=== PATIENT | female | born 1950 | race Caucasian/White ===

== ENCOUNTER 2017-07-30 06:11 | Day surgery (SDC) | payer OTHER, MEDICARE ==
[2017-07-26 13:30] LABS: HEMATOCRIT 39.3 % (36.0-47.0); HEMOGLOBIN 13.2 g/dL (12.0-15.5); HGB HCT DIFFERENCE 0.3; MEAN CORPUSCULAR HEMOGLOBIN 28.9 pg (27.0-33.4); MEAN CORPUSCULAR HGB CONC 33.5 g/dL (32.0-36.0); MEAN CORPUSCULAR VOLUME 86 fl (80-97); RED BLOOD COUNT 4.56 10^6/uL (3.72-5.28); RED CELL DISTRIBUTION WIDTH 15.3 % (11.5-14.0); WHITE BLOOD COUNT 9.9 10^3/uL (4.0-10.5)
[2017-07-26 13:34] LABS: PARTIAL THROMBOPLASTIN TIME 30.8 SEC (23.5-35.8); PROTHROMBIN TIME 12.9 SEC (11.4-15.4)
--- NOTE | 2017-07-26 13:37 | RADIOLOGY REPORT (SQ) ---
EXAM DESCRIPTION: CHEST PA/LATERAL COMPLETED DATE/TIME: 07/26/2017 1:11 pm REASON FOR STUDY: PRE-OP COMPARISON: None. EXAM PARAMETERS: NUMBER OF VIEWS: two views TECHNIQUE: Digital Frontal and Lateral radiographic views of the chest acquired. RADIATION DOSE: NA LIMITATIONS: none FINDINGS: LUNGS AND PLEURA: No opacities, masses or pneumothorax. No pleural effusion. MEDIASTINUM AND HILAR STRUCTURES: No masses or contour abnormalities. HEART AND VASCULAR STRUCTURES: Heart normal size. No evidence for failure. BONES: No acute findings. HARDWARE: Electronic device is present on the back. OTHER: No other significant finding. IMPRESSION: NO SIGNIFICANT RADIOGRAPHIC FINDING IN THE CHEST. TECHNICAL DOCUMENTATION: JOB ID: [id number] [employer]- All Rights Reserved
[2017-07-26 13:48] LABS: APPEARANCE,URINE CLEAR; BILIRUBIN,URINE NEGATIVE (NEGATIVE); GLUCOSE, URINE NEGATIVE (NEGATIVE); KETONES,URINE NEGATIVE (NEGATIVE); LEUKOCYTE ESTERASE,URINE NEGATIVE (NEGATIVE); NITRITE,URINE NEGATIVE (NEGATIVE); PROTEIN,URINE NEGATIVE (NEGATIVE); UROBILINOGEN,URINE NEGATIVE mg/dL (<2.0)
[2017-07-26 13:53] LABS: RBC,URINE RARE /HPF
--- NOTE | 2017-07-27 02:47 | EKG REPORT ---
SEVERITY:- OTHERWISE NORMAL ECG - SINUS RHYTHM WITH PACS. LEFT AXIS DEVIATION : Confirmed by: Oscar Green MD 26-Jul-2017 19:55:10
[~2017-07-30 06:11] MED LIST: CEFAZOLIN 1 GM/D5W RTU 1 GM/50 ML RTUPB IV PRN; LACTATED RINGERS 1000 ML IV PRN; LIDOCAINE 0.5% INJ-PF (5 MG/ML) 50 ML SDV SUBCUT PRN
[2017-07-30] MEDS ORDERED: LIDOCAINE 1% INJ-PF (10 MG/ML) 30 ML SDV ONE (06:45)
[2017-07-30] MEDS ORDERED: BUPIVACAINE HCL 0.25% /EPINEPHRINE INJ/PF 30 ML SDV ONE (06:45)
[2017-07-30] MEDS ORDERED: KETAMINE HCL INJ 500 MG/10 ML VIAL ONE (07:37)
[2017-07-30] MEDS ORDERED: FENTANYL CITRATE INJ/PF 100 MCG/2 ML AMPUL ONE ×2 (07:37→09:33)
[2017-07-30] MEDS ORDERED: MIDAZOLAM 2 MG/2 ML INJ ONE (07:37)
[2017-07-30] MEDS ORDERED: EPHEDRINE SULFATE INJ 50 MG/1 ML AMPULE ONE (07:38)
[2017-07-30] MEDS ORDERED: PROPOFOL INJ 200 MG/20 ML VIAL IV ONE (07:38)
[2017-07-30] MEDS ORDERED: ACETAMINOPHEN 100 ML IV ONE (07:38)
[2017-07-30] MEDS ORDERED: LIDOCAINE 2% INJ-PF (100 MG/5 ML) SYRINGE ONE (07:38)
[2017-07-30] MEDS ORDERED: SODIUM BICARBONATE 8.4% INJ 50 MEQ/50 ML DISP.SYRIN ONE (07:55)
[2017-07-30] MEDS ORDERED: FENTANYL CITRATE INJ/PF 100 MCG/2 ML AMPUL IV PRN ×3 (08:30)
[2017-07-30] MEDS ORDERED: MORPHINE SULFATE 10 MG/ML INJ IV PRN (08:30)
[2017-07-30] MEDS ORDERED: MEPERIDINE HCL/PF INJ 25 MG/1 ML DISP.SYRIN IV PRN (08:30)
[2017-07-30] MEDS ORDERED: ONDANSETRON HCL INJ/PF 4 MG/2 ML SDV IV PRN (08:30)
[2017-07-30] MEDS ORDERED: OXYCODONE-ACETAMINOPHEN 5-325 MG TABLET PO PRN ×2 (08:30)
[2017-07-30] MEDS ORDERED: DIPHENHYDRAMINE HCL 50 MG/ML VIAL IV PRN (08:30)
[2017-07-30] MEDS ORDERED: PROMETHAZINE HCL INJ 25 MG/1 ML VIAL IV PRN ×2 (08:30)
[2017-07-30] MEDS ORDERED: CEFAZOLIN INJ 1 GM VIAL ONE (09:27)
--- NOTE | 2017-07-30 09:38 | OPERATIVE REPORT E ---
Operative Report NAME: JOAQUIN MELISSA : 1950 AGE: 67Y DATE OF SURGERY: 07/30/2017 ROOM: PREOPERATIVE DIAGNOSIS: Post-laminectomy syndrome with intractable back and lower extremity pain. POSTOPERATIVE DIAGNOSIS: Post-laminectomy syndrome with intractable back and lower extremity pain. OPERATIVE PROCEDURE: 1. Surgical implantation of right and left spinal cord stimulator leads using dual octrodes with a total of 16 electrode contact points. 2. Implantation and programming of rechargeable spinal cord stimulator generator and fluoroscopy for guidance of needle placement and electrode placement with complex programming. SURGEON: OSMAN CHAWLA M.D. RESTAURANT EXPEDITOR: Dr. Jose Luis Appiah ANESTHESIA: MAC. BLOOD LOSS: Minimal. SPECIMENS REMOVED: None. INDICATIONS: Successful outpatient trial to spinal cord stimulation. PROCEDURE NOTE: After obtaining informed consent advising the patient of the risks and benefits, including serious neurological injury, bleeding, and infection, the patient was taken to the operating room suite and placed comfortably in the prone position. Comfort was assessed visually and verbally. The patient was prepped twice with chlorhexidine with appropriate drying time prior to draping. Using fluoroscopy the spine was evaluated. A suitable entrance site at the T11-T12 interspace was identified. The midline incision site was identified as well. The skin was anesthetized with 1% lidocaine with bicarb followed by 0.25% bupivacaine with epinephrine. It should also be noted that simultaneously over the right gluteal region Dr. Appiah was initiating the surgical implantation procedure for placement of the pulse generator with initiation of local anesthetic with lidocaine and bupivacaine as described previously. Once suitable anesthesia was obtained with local anesthetic, sharp and blunt dissection was performed down to the lumbar fascia. The region was easily identified. Some undermining of the tissue was performed to create a suitable working area. Beginning on the left side, using a spinal needle, the tract of the Tuohy needle was anesthetized with 1% lidocaine down to the T12-T11 interspace. This was repeated on the right side. Then, using a 14-gauge Tuohy needle, this was advanced into the epidural space without difficulty using loss of resistance to saline technique. The octrode was then placed on the left. This procedure then proceeded on the right. Lateral view was then taken to assure posterior placement of the electrodes. The electrodes were than advanced up to the mid portion of T7 with multiple radiological views to ascertain safety and satisfactory location, and the leads remained posterior at all times. The decision was made to implant after successful trial effecting spinal cord stimulation at all of the desired locations. The 0-Mersilene ties were placed in a pursestring fashion around each needle followed by a distal anchor stay stitch. Beginning on the left the Tuohy needle was removed with care being made not to dislodge the electrode. The pursestring was secured after placing the tubular anchor. This was then tied to the tubular anchor. The distal pursestring was also tied to the anchor and the hex nut was secured. This was then repeated on the right side, removing the Tuohy needle followed by securing the stay sutures and the anchor with tightening of the hex nut. Copious irrigation was then utilized. The wound was evaluated for hemostasis and this was satisfactory. The leads were then tunneled to the pocket by Dr. Appiah. It should be noted that local anesthetic was used for tunneling as well. The leads were then coiled in the back as well as coiled in the pulse generator site, connected to the generator with successful connectivity and appropriate impedances. All wounds were further irrigated and closure was performed with 3-0 Polysorb using vertical inverted mattress sutures. The skin was then sealed with the Dermabond tape followed by cement, Telfa dressings and Tegaderm. The patient was then taken to the PACU for further postoperative care and monitoring. DICTATING PHYSICIAN: OSMAN CHWALA M.D. [id number] PHY#: [id number] ID: [id number] JOB#: [id number] ACCT: [id number] cc:OSMAN CHAWLA M.D. >
[2017-07-30] MEDS ORDERED: HYDROCODONE/ACETAMINOPHEN 10-325 MG TABLET PO PRN (09:59)
[2017-07-30 12:16] VITALS: BP 114/76
--- NOTE | 2017-07-30 12:59 | RADIOLOGY REPORT (SQ) ---
EXAM DESCRIPTION: NO CHG FLUORO; T SPINE AP/LAT COMPLETED DATE/TIME: 07/30/2017 12:30 pm REASON FOR STUDY: SPINAL STIMULATOR PLCMT ASSISTED WITH FLUORO IN OR G89.4 CHRONIC PAIN SYNDROME COMPARISON: None. FLUOROSCOPY TIME: 4.5 minutes 10 images saved to PACS. TECHNIQUE: Intra-operative images acquired during surgical procedure to evaluate progress. NUMBER OF IMAGES: 10 LIMITATIONS: None. FINDINGS: Placement of neurostimulator. Leads present mid thoracic. IMPRESSION: IMAGE(S) OBTAINED DURING PROCEDURE. COMMENT: Quality ID [id number]: Final reports for procedures using fluoroscopy that document radiation exp osure indices, or exposure time and number of fluorographic images (if radiation exposure indices are not available) Please consult full operative report of the attending physician for description of the procedure. TECHNICAL DOCUMENTATION: JOB ID: [id number] [employer]- All Rights Reserved
--- NOTE | 2017-07-30 12:59 | RADIOLOGY REPORT (SQ) ---
EXAM DESCRIPTION: NO CHG FLUORO; T SPINE AP/LAT COMPLETED DATE/TIME: 07/30/2017 12:30 pm REASON FOR STUDY: SPINAL STIMULATOR PLCMT ASSISTED WITH FLUORO IN OR G89.4 CHRONIC PAIN SYNDROME COMPARISON: None. FLUOROSCOPY TIME: 4.5 minutes 10 images saved to PACS. TECHNIQUE: Intra-operative images acquired during surgical procedure to evaluate progress. NUMBER OF IMAGES: 10 LIMITATIONS: None. FINDINGS: Placement of neurostimulator. Leads present mid thoracic. IMPRESSION: IMAGE(S) OBTAINED DURING PROCEDURE. COMMENT: Quality ID [id number]: Final reports for procedures using fluoroscopy that document radiation exp osure indices, or exposure time and number of fluorographic images (if radiation exposure indices are not available) Please consult full operative report of the attending physician for description of the procedure. TECHNICAL DOCUMENTATION: JOB ID: [id number] [employer]- All Rights Reserved
== END 2017-07-30 11:25 | disposition home or self-care (01) ==
LOC: OROUT 06:11
PROVIDERS: ATTEND Pain Medicine Interventional Pain Medicine
PROC: 00HU3MZ Insertion of Neurostimulator Lead into Spinal Canal, Percutaneous Approach (ICD-10-PCS; 2017-07-30)
PROC: 0JH70MZ Insertion of Stimulator Generator into Back Subcutaneous Tissue and Fascia, Open Approach (ICD-10-PCS; principal; 2017-07-30 08:00)
DX: G89.4 Chronic pain syndrome (principal); M54.16 Radiculopathy, lumbar region; M96.1 Postlaminectomy syndrome, not elsewhere classified; M54.5 Low back pain; E78.5 Hyperlipidemia, unspecified; I10 Essential (primary) hypertension; M19.90 Unspecified osteoarthritis, unspecified site; F32.9 Major depressive disorder, single episode, unspecified; Z79.899 Other long term (current) drug therapy; Z79.891 Long term (current) use of opiate analgesic
CPT/HCPCS: 63685; 63650; 93005; 36415; 82962; 85027; 85610; 85730; 81001; 71020; 72070; 93010; C1820; J2250; J3490 ×4; J0690 ×2; J3010; J2001; J2704; J0131; 1936

== ENCOUNTER 2017-09-02 11:15 | Inpatient (IN) | payer MEDICARE, OTHER ==
[2017-09-30] MEDS ORDERED: LANSOPRAZOLE 15 MG TAB.RAP.DR PO PRN (05:00)
[2017-09-30] MEDS ORDERED: LIDOCAINE 0.5% INJ-PF (5 MG/ML) 50 ML SDV SUBCUT PRN (05:00)
[2017-09-30] MEDS ORDERED: LACTATED RINGERS 1000 ML IV PRN (05:00)
[2017-09-30] MEDS ORDERED: VANCOMYCIN HCL 1,000 MG in DEXTROSE 5%-WATER 250 ML IV PRN (05:00)
[2017-09-30] MEDS ORDERED: OXYCODONE HCL SR 10 MG TABLET PO PRN (05:00)
[2017-09-30] MEDS ORDERED: CEFAZOLIN INJ 1 GM VIAL IV PRN (05:00)
[2017-09-30] MEDS ORDERED: IBUPROFEN 800 MG in NORMAL SALINE 250 ML IV PRN (05:00)
[2017-09-30] MEDS ORDERED: BUPIVACAINE INJ/PF LIPOSOME/PF 266 MG/20 ML SDV INJ PRN (05:00)
[2017-09-30] MEDS ORDERED: BUPIVACAINE INJ/PF LIPOSOME/PF 266 MG/20 ML SDV ONE (05:16)
[2017-09-30] MEDS ORDERED: THROMBIN (BOVINE) 5000 UNIT EPITAXIS KIT ONE (05:16)
[2017-09-30] MEDS ORDERED: THROMBIN (BOVINE) TOPICAL 20000 UNIT VIAL ONE (05:16)
[2017-09-30] MEDS ORDERED: EPHEDRINE SULFATE INJ 50 MG/1 ML AMPULE ONE (06:41)
[2017-09-30] MEDS ORDERED: LIDOCAINE 2% INJ-PF (20 MG/ML) 10 ML AMPUL ONE (06:41)
[2017-09-30] MEDS ORDERED: MIDAZOLAM 2 MG/2 ML INJ ONE (06:41)
[2017-09-30] MEDS ORDERED: PROPOFOL INJ 200 MG/20 ML VIAL IV ONE (06:41)
[2017-09-30] MEDS ORDERED: FENTANYL CITRATE INJ/PF 100 MCG/2 ML AMPUL ONE ×2 (06:41→09:00)
[2017-09-30] MEDS ORDERED: ONDANSETRON HCL INJ/PF 4 MG/2 ML SDV ONE (06:41)
[2017-09-30] MEDS ORDERED: TRANEXAMIC ACID INJ/PF 1,000 MG/10 ML SDV IV ONE ×2 (06:42→10:30)
[2017-09-30] MEDS ORDERED: HYDROMORPHONE HCL INJ/PF 2 MG/ML AMPULE ONE (06:42)
[2017-09-30] MEDS ORDERED: MEPERIDINE HCL/PF INJ 25 MG/1 ML DISP.SYRIN IV PRN (07:46)
[2017-09-30] MEDS ORDERED: MORPHINE SULFATE 10 MG/ML INJ IV PRN ×4 (07:46→08:32)
[2017-09-30] MEDS ORDERED: ONDANSETRON HCL INJ/PF 4 MG/2 ML SDV IV PRN ×2 (07:46→08:32)
[2017-09-30] MEDS ORDERED: DIPHENHYDRAMINE HCL 50 MG/ML VIAL IV PRN ×2 (07:46→08:32)
[2017-09-30] MEDS ORDERED: OXYCODONE-ACETAMINOPHEN 5-325 MG TABLET PO PRN ×2 (07:46)
[2017-09-30] MEDS ORDERED: FENTANYL CITRATE INJ/PF 100 MCG/2 ML AMPUL IV PRN ×3 (07:46)
[2017-09-30] MEDS ORDERED: PROMETHAZINE HCL INJ 25 MG/1 ML VIAL IV PRN ×2 (07:46)
--- NOTE | 2017-09-30 08:19 | Operative Report ---
Operative Report DATE OF SURGERY: 09/30/17 PREOPERATIVE DIAGNOSIS: Right hip arthritis OPERATION: Right hip arthroplasty SURGEON: ERIKA WOODS 1ST OFFICE ELECTRICIAN: MARIE VEGA ANESTHESIA: GA TISSUE REMOVED OR ALTERED: Femoral head to pathology PROCEDURE: Implants used: Femur: [place] Accolade 2 stem size 4 Acetabular shell: 50 mm PSL shell Liner: 36 mm flat cross-link polyethylene liner Head: 36 mm chrome cobalt head -5 neck The patient is placed in a left lateral decubitus position on the operating table. The right lower extremity and hindquarter is prepped and draped in a sterile fashion. A curvilinear incision was made over the greater trochanter a posterior approach the hip was taken. Because of the presence of a spinal stimulator all hemostasis was obtained with bipolar cautery. The femoral head is dislocated and the femoral neck transected using an oscillating saw. Attention was next turned to the acetabulum. Soft tissues cleared off the acetabulum using electrocautery. The acetabulum was then prepared using a series of hemispherical reamers until a 50 millimeters reamer is seated. Subsequently a 50 millimeters [place] PSL shell is impacted into position and secured with one screw. A standard flat 36 millimeters cross-link liner is impacted into the shell. Attention was next turned to the femur. Access is gained to the femoral canal using a box osteotome to the piriformis fossa. The femur is then prepared using a series of broaches until a number 4 broach is seated. A trial reduction was now performed using a 36 millimeters head with -5 neck. Preoperative leg length was recreated and is excellent anterior posterior stability. A decision was made to proceed with the above construct. All trial implants were removed. The wound is irrigated with pulsed lavage. A number 4 stem is impacted into the femoral canal. A trial reduction was again performed with a 36 mm head and a -5 neck. Findings as previously. The hip was dislocated one last time and the final chrome-cobalt head is impacted onto the trunnion. The hip was reduced. Wound is copiously irrigated with pulsed lavage. Sent closed in layers using interrupted Vicryl followed by gene. A sterile dressing is applied and the patient's returned to recovery room in satisfactory patient.
[2017-09-30] MEDS ORDERED: METHOCARBAMOL 500 MG TABLET PO PRN (08:31)
[2017-09-30] MEDS ORDERED: RINGERS SOLUTION,LACTATED 1,000 ML IV PRN (08:32)
[2017-09-30] MEDS ORDERED: MAG HYDROX/AL HYDROX/SIMETH SUSP 30 ML UDCUP PO PRN (08:32)
[2017-09-30] MEDS ORDERED: ONDANSETRON 4 MG TAB.RAPDIS PO PRN (08:32)
[2017-09-30] MEDS ORDERED: ZOLPIDEM TARTRATE 5 MG TABLET PO PRN (08:32)
[2017-09-30] MEDS ORDERED: MORPHINE SULFATE 10 MG/ML INJ IM PRN (08:32)
[2017-09-30] MEDS ORDERED: NALOXONE HCL INJ/PF 0.4 MG/1 ML SDV ONE (08:59)
[2017-09-30] MEDS ORDERED: FLUMAZENIL INJ 0.5 MG/5 ML VIAL ONE (08:59)
--- NOTE | 2017-09-30 09:54 | RADIOLOGY REPORT (SQ) ---
EXAM DESCRIPTION: PELVIS AP COMPLETED DATE/TIME: 09/30/2017 9:33 am REASON FOR STUDY: Post Op Long Cassette in PACU M16.11 UNILATERAL PRIMARY OSTEOARTHRITIS, RIGHT HI P COMPARISON: None. NUMBER OF VIEWS: One view TECHNIQUE: AP Pelvis LIMITATIONS: None. FINDINGS: MINERALIZATION: Normal. HIPS: Total right hip prostheses. No radiographic evidence of loosening or infection. Post surgica l changes with multiple surgical metallic gene in the lateral soft tissues of the right hip. No acute fracture or dislocation involving the left hip. Slight degenerative changes. PELVIS AND SACRUM: Surgical metallic clips in the right hemipelvis and midline pelvis. PUBIS AND ISCHIUM: No acute fracture. LOWER LUMBAR SPINE: No significant findings as visualized. SOFT TISSUES: No findings. OTHER: Partially visualized neural stimulator device. Post surgical changes involving the visualize d mid lower lumbar spine. IMPRESSION: 1 Post surgical changes right hip. Total right hip prostheses. 2. No acute fracture or dislocation. 3 Slight degenerative changes at the left hip. TECHNICAL DOCUMENTATION: JOB ID: [id number] [employer]- All Rights Reserved
[2017-09-30] MEDS: ASPIRIN 81 MG TABLET, CHEWABLE PO SCH (10:47)
[2017-09-30] MEDS: GABAPENTIN 300 MG CAPSULE PO SCH ×2 (11:07→18:35)
[2017-09-30] MEDS ORDERED: SUCCINYLCHOLINE CHLORIDE INJ 200 MG/10 ML VIAL ONE ×2 (12:03→12:04)
[2017-09-30] MEDS ORDERED: HYDROMORPHONE HCL INJ/PF 2 MG/ML AMPULE IV PRN (12:14)
[2017-09-30] MEDS ORDERED: INSULIN LISPRO 100 UNIT/ML 3 ML VIAL SUBCUT PRN (12:38)
[2017-09-30] MEDS ORDERED: GLUCAGON,HUMAN RECOMB 1 MG INJ IM PRN (12:38)
[2017-09-30] MEDS ORDERED: DEXTROSE 50%-WATER SYRINGE 12.5 GM/25 ML DOSE IV PRN (12:38)
[2017-09-30] MEDS ORDERED: DEXTROSE 50%-WATER SYRINGE 25 GM/50 ML DOSE IV PRN (12:38)
[2017-09-30] MEDS ORDERED: DEXTROSE 40% GEL 15 GM TUBE X 2 PO PRN (12:38)
[2017-09-30] MEDS ORDERED: DEXTROSE 40% GEL 15 GM TUBE PO PRN (12:38)
[2017-09-30] MEDS: HYDROMORPHONE HCL INJ/PF 2 MG/ML AMPULE IV PRN (13:52)
[2017-09-30] MEDS ORDERED: ACETAMINOPHEN 100 ML IV ONE (14:32)
[2017-09-30] MEDS: IBUPROFEN 800 MG in NORMAL SALINE 250 ML IV SCH (15:15)
[2017-09-30] MEDS: OXYCODONE HCL IR 5 MG TABLET PO PRN (18:35)
[2017-09-30] MEDS: SIMVASTATIN 40 MG TABLET PO SCH (18:35)
[2017-09-30] MEDS ORDERED: VANCOMYCIN HCL 1,000 MG in DEXTROSE 5%-WATER 250 ML IV ONE (20:32)
[2017-09-30] MEDS: OXYCODONE HCL SR 10 MG TABLET PO SCH (21:44)
[2017-09-30] MEDS: OXYBUTYNIN CHLORIDE 5 MG TABLET PO SCH (21:44)
[2017-09-30] MEDS: TRAZODONE HCL 50 MG TABLET PO SCH (21:44)
[2017-09-30] MEDS ORDERED: (PENDING PHARMACY ID) (Trazodone Hcl [Desyrel] 150 MG) PO SCH (22:00)
[2017-10-01] MEDS: GABAPENTIN 300 MG CAPSULE PO SCH ×5 (00:42→23:52)
[2017-10-01] MEDS: IBUPROFEN 800 MG in NORMAL SALINE 250 ML IV SCH ×4 (00:42→22:25)
[2017-10-01 05:39] LABS: HEMATOCRIT 27.4 % (36.0-47.0); HEMOGLOBIN 9.2 g/dL (12.0-15.5); MEAN CORPUSCULAR HEMOGLOBIN 29.7 pg (27.0-33.4); MEAN CORPUSCULAR HGB CONC 33.6 g/dL (32.0-36.0); MEAN CORPUSCULAR VOLUME 88 fl (80-97); PLATELET COUNT 221 10^3/uL (150-450); RED BLOOD COUNT 3.11 10^6/uL (3.72-5.28); RED CELL DISTRIBUTION WIDTH 14.3 % (11.5-14.0); WHITE BLOOD COUNT 10.1 10^3/uL (4.0-10.5)
[2017-10-01 06:14] LABS: ANION GAP 7 (5-19); BLOOD UREA NITROGEN 17 mg/dL (7-20); CALCIUM 8.9 mg/dL (8.4-10.2); CARBON DIOXIDE 24 mmol/L (22-30); CHLORIDE 103 mmol/L (98-107); GLUCOSE 109 mg/dL (75-110); POTASSIUM 4.8 mmol/L (3.6-5.0); SODIUM 133.9 mmol/L (137-145)
[2017-10-01] MEDS: LANSOPRAZOLE 30 MG TAB.RAP.DR PO SCH (06:44)
--- NOTE | 2017-10-01 07:05 | PDOC PROGRESS REPORT ---
Subjective Progress Note for:: 10/01/17 Reason For Visit: RIGHT HIP ARTHRITIS 67-year-old white female postop day 1 right hip arthroplasty. Patient complains of discomfort. Physical Exam Vital Signs: Temp Pulse Resp BP Pulse Ox 36.7 C 67 16 94/44 L 98 10/01/17 03:31 10/01/17 03:31 10/01/17 03:31 10/01/17 03:31 10/01/17 03:31 Intake & Output 09/30/17 10/01/17 10/02/17 06:59 06:59 06:59 Intake Total 0 4150 Output Total 2050 Balance 0 2100 General appearance: PRESENT: mild distress Head exam: PRESENT: normocephalic Respiratory exam: PRESENT: unlabored Cardiovascular exam: PRESENT: RRR Pulses: PRESENT: +1 pedal pulses bilateral Vascular exam: PRESENT: normal capillary refill GI/Abdominal exam: PRESENT: soft Rectal exam: PRESENT: deferred Extremities exam: PRESENT: other - Right hip dressing clean dry and intact. Leg lengths are equal. Distal neurovascular examination is intact. Neurological exam: PRESENT: alert, awake, oriented to person, oriented to place , oriented to time, oriented to situation. ABSENT: motor sensory deficit Psychiatric exam: PRESENT: appropriate affect, normal mood. ABSENT: homicidal ideation, suicidal ideation Skin exam: PRESENT: dry, intact, warm. ABSENT: cyanosis, rash Results Laboratory Results: 10/01/17 05:12 10/01/17 05:12 10/01/17 10/01/17 05:12 05:12 WBC 10.1 RBC 3.11 L Hgb 9.2 L Hct 27.4 L MCV 88 MCH 29.7 MCHC 33.6 RDW 14.3 H Plt Count 221 Sodium 133.9 L Potassium 4.8 Chloride 103 Carbon Dioxide 24 Anion Gap 7 BUN 17 Creatinine 1.24 Est GFR ( Amer) 52 L Est GFR (Non-Af Amer) 43 L Glucose 109 Calcium 8.9 Impressions: Pelvis X-Ray 09/30/17 08:33 IMPRESSION: 1 Post surgical changes right hip. Total right hip prostheses. 2. No acute fracture or dislocation. 3 Slight degenerative changes at the left hip. Status: Imported from PACS Assessment & Plan - Diagnosis (1) Arthritis of right hip Is this a current diagnosis for this admission?: Yes Plan: 67-year-old white female status post right hip arthroplasty yesterday. Patient made limited if any progress with physical therapy yesterday. Hematocrit is dropped to 27.4%. Plan for ongoing physical therapy today. Will observe the hematocrit tomorrow morning. Anticipate discharge home tomorrow with home health assisted health physical therapy. - Time Time Spent with patient: 15-24 minutes Anticipated discharge: Home with Homehealth Within: within 24 hours
[2017-10-01] MEDS: OXYCODONE HCL SR 10 MG TABLET PO SCH ×2 (09:45→22:24)
[2017-10-01] MEDS: LOSARTAN POTASSIUM 50 MG TABLET PO SCH (09:46)
[2017-10-01] MEDS: DULOXETINE HCL 30 MG CAPSULE.DR PO SCH (09:46)
[2017-10-01] MEDS: ASPIRIN 81 MG TABLET, CHEWABLE PO SCH (09:46)
[2017-10-01] MEDS: OXYBUTYNIN CHLORIDE 5 MG TABLET PO SCH ×2 (09:47→22:26)
[2017-10-01] MEDS: HYDROMORPHONE HCL INJ/PF 2 MG/ML AMPULE IV PRN (15:11)
[2017-10-01] MEDS: SIMVASTATIN 40 MG TABLET PO SCH (17:19)
[2017-10-01] MEDS: TRAZODONE HCL 50 MG TABLET PO SCH (22:25)
[2017-10-02 04:58] LABS: HEMATOCRIT 24.5 % (36.0-47.0); HEMOGLOBIN 8.2 g/dL (12.0-15.5); MEAN CORPUSCULAR HEMOGLOBIN 29.6 pg (27.0-33.4); MEAN CORPUSCULAR HGB CONC 33.3 g/dL (32.0-36.0); MEAN CORPUSCULAR VOLUME 89 fl (80-97); PLATELET COUNT 191 10^3/uL (150-450); RED BLOOD COUNT 2.76 10^6/uL (3.72-5.28); RED CELL DISTRIBUTION WIDTH 14.3 % (11.5-14.0); WHITE BLOOD COUNT 10.7 10^3/uL (4.0-10.5)
[2017-10-02] MEDS: IBUPROFEN 800 MG in NORMAL SALINE 250 ML IV SCH (05:16)
[2017-10-02] MEDS ORDERED: NORMAL SALINE 250 ML IV PRN (05:50)
[2017-10-02] MEDS: GABAPENTIN 300 MG CAPSULE PO SCH ×4 (06:28→23:09)
[2017-10-02] MEDS: LANSOPRAZOLE 30 MG TAB.RAP.DR PO SCH (06:28)
--- NOTE | 2017-10-02 06:43 | PDOC PROGRESS REPORT ---
Subjective Progress Note for:: 10/02/17 Reason For Visit: RIGHT HIP ARTHRITIS 67-year-old white female postop day 2 right hip arthroplasty. Patient complaining of discomfort. Patient making limited progress with physical therapy. Patient exhibiting some upper airway congestion. Physical Exam Vital Signs: Temp Pulse Resp BP Pulse Ox 36.9 C 65 16 100/54 L 98 10/02/17 00:00 10/02/17 00:00 10/02/17 00:00 10/02/17 00:00 10/02/17 00:00 Intake & Output 09/30/17 10/01/17 10/02/17 06:59 06:59 06:59 Intake Total 0 4666 594 Output Total 2850 550 Balance 0 1816 44 General appearance: PRESENT: mild distress Head exam: PRESENT: normocephalic Respiratory exam: PRESENT: unlabored Cardiovascular exam: PRESENT: RRR Extremities exam: PRESENT: other - Right hip dressing clean dry and intact. Leg lengths are equal. Distal neurovascular examination is intact. Neurological exam: PRESENT: alert, awake, oriented to person, oriented to place , oriented to time, oriented to situation. ABSENT: motor sensory deficit Psychiatric exam: PRESENT: appropriate affect, normal mood. ABSENT: homicidal ideation, suicidal ideation Skin exam: PRESENT: dry, intact, warm. ABSENT: cyanosis, rash Results Laboratory Results: 10/02/17 04:30 10/01/17 05:12 09/30/17 10/02/17 05:59 04:30 WBC 10.7 H RBC 2.76 L Hgb 8.2 L Hct 24.5 L MCV 89 MCH 29.6 MCHC 33.3 RDW 14.3 H Plt Count 191 Blood Type A POSITIVE Antibody Screen NEGATIVE Impressions: Pelvis X-Ray 09/30/17 08:33 IMPRESSION: 1 Post surgical changes right hip. Total right hip prostheses. 2. No acute fracture or dislocation. 3 Slight degenerative changes at the left hip. Status: Imported from PACS Assessment & Plan - Diagnosis (1) Arthritis of right hip Is this a current diagnosis for this admission?: Yes Plan: Patient making limited progress with physical therapy currently. Have changed her discharge goals now to a care home facility. (2) Acute blood loss as cause of postoperative anemia Is this a current diagnosis for this admission?: Yes Plan: Patient's postoperative hematocrit is dropped to 24.5%. 2 units of packed red blood cells have been ordered. - Time Time Spent with patient: 15-24 minutes Anticipated discharge: SNF Within: within 24 hours
[2017-10-02] MEDS: LOSARTAN POTASSIUM 50 MG TABLET PO SCH (10:15)
[2017-10-02] MEDS: OXYCODONE HCL SR 10 MG TABLET PO SCH (10:18)
[2017-10-02] MEDS: DULOXETINE HCL 30 MG CAPSULE.DR PO SCH (10:18)
[2017-10-02] MEDS: ASPIRIN 81 MG TABLET, CHEWABLE PO SCH (10:18)
[2017-10-02] MEDS: OXYBUTYNIN CHLORIDE 5 MG TABLET PO SCH ×2 (10:18→23:10)
[2017-10-02] MEDS: SIMVASTATIN 40 MG TABLET PO SCH (17:23)
[2017-10-02] MEDS: TRAZODONE HCL 50 MG TABLET PO SCH (23:10)
[2017-10-02] MEDS: ACETAMINOPHEN 325 MG TABLET PO PRN (23:11)
[2017-10-03] MEDS: GABAPENTIN 300 MG CAPSULE PO SCH ×3 (05:25→17:46)
[2017-10-03] MEDS: LANSOPRAZOLE 30 MG TAB.RAP.DR PO SCH (05:25)
--- NOTE | 2017-10-03 06:53 | PDOC TRANSFER SUMMARY ---
General Admission Date/PCP: 09/30/17 05:39 TERESA VELEZ MD Resuscitation Status: Full Code - Transfer Diagnosis (1) Arthritis of right hip Is this a current diagnosis for this admission?: Yes - Transfer Medications Home Medications: Duloxetine HCl [Cymbalta] 60 mg PO DAILY 09/27/17 Eszopiclone [Lunesta] 3 mg PO QHS 09/27/17 Gabapentin [Neurontin] 600 mg PO Q6 09/27/17 Hydrocodone/Acetaminophen [Emblem 10-325 mg Tablet] 1 tab PO QID 09/27/17 Losartan Potassium [Cozaar 50 mg Tablet] 50 mg PO DAILY 09/27/17 Meloxicam [Mobic] 7.5 mg PO BIDP PRN 09/27/17 Methocarbamol [Robaxin 500 mg Tablet] 500 mg PO TIDP PRN 09/27/17 Oxybutynin Chloride [Ditropan Xl] 10 mg PO DAILY 09/27/17 Simvastatin [Zocor 40 mg Tablet] 40 mg PO QPM 09/27/17 Tramadol HCl [Ultram 50 mg Tablet] 50 mg PO BIDP PRN 09/27/17 Trazodone HCl [Desyrel] 150 mg PO QHS 09/27/17 Transfer Medications: Current Medications Acetaminophen (Tylenol 325 Mg Tablet) 650 mg PO Q4HP PRN PRN Reason: Temp greater than 101F Stop: 10/30/17 08:31 Last Admin: 10/02/17 23:11 Dose: 650 mg Al Hydrox/Mg Hydrox/Simethicone (Maalox Plus Susp 30 Udcup) 30 ml PO Q6HP PRN PRN Reason: HEARTBURN Stop: 10/30/17 08:31 Aspirin (Aspirin 81 Mg Chewable Tablet) 81 mg PO DAILY GILES Stop: 10/11/17 10:01 Last Admin: 10/02/17 10:18 Dose: 81 mg Dextrose (Dextrose Inj 50% Syringe (25 Gm/50 Ml)) 12.5 gm IV PRN PRN; Protocol PRN Reason: FOR BG 50-69 IN ALERT PATIENT Stop: 10/30/17 12:37 Dextrose (Dextrose Inj 50% Syringe (25 Gm/50 Ml)) 25 gm IV PRN PRN PRN Reason: Protocol Stop: 10/30/17 12:37 Diphenhydramine HCl (Benadryl Inj 50 Mg/1 Ml Vial) 25 mg IV Q6HP PRN PRN Reason: FOR ITCHING Stop: 10/30/17 08:31 Duloxetine HCl (Cymbalta 30 Mg Capsule.Dr) 60 mg PO DAILY [facility] Stop: 10/31/17 09:59 Last Admin: 10/02/17 10:18 Dose: 60 mg Gabapentin (Neurontin 300 Mg Capsule) 600 mg PO Q6 GILES Stop: 10/30/17 11:59 Last Admin: 10/03/17 05:25 Dose: 600 mg Glucagon (Glucagen Inj 1 Mg Vial) 1 mg IM PRN PRN; Protocol PRN Reason: EVALUATE FOR BG < 70 Stop: 10/30/17 12:37 Glucose (Glutose 40% Gel 15 Gm Tube) 15 gm PO PRN PRN; Protocol PRN Reason: FOR BG 50-69 IN ALERT PATIENT Stop: 10/30/17 12:37 Glucose (Glutose 40% Gel 15 Gm Tube) 30 gm PO PRN PRN; Protocol PRN Reason: FOR BG < 50 IN ALERT PATIENT Stop: 10/30/17 12:37 Hydromorphone HCl (Dilaudid Inj/Pf 2 Mg/Ml Ampule) 1 mg IV Q2HP PRN PRN Reason: FOR PAIN SCALE 2-3 Stop: 10/07/17 12:13 Hydromorphone HCl (Dilaudid Inj/Pf 2 Mg/Ml Ampule) 2 mg IV Q4HP PRN PRN Reason: FOR PAIN SCALE 4-5 Stop: 10/07/17 12:13 Last Admin: 10/01/17 15:11 Dose: 2 mg Lactated Ringer's (Lactated Ringers 1000 Ml Iv Soln) 1,000 mls @ 150 mls/hr IV CONTINUOUS PRN PRN Reason: THIS MED IS NOT "PRN" Stop: 10/30/17 08:31 Insulin Human Lispro (Humalog Insulin 100 Unit/1 Ml 3 Ml Vial) 0 - 12 unit SUBCUT ACHSP PRN PRN Reason: Protocol Stop: 10/30/17 12:37 Lansoprazole (Prevacid 30 Mg Odt Tablet) 30 mg PO Q6AM [facility] Stop: 10/31/17 05:59 Last Admin: 10/03/17 05:25 Dose: 30 mg Losartan Potassium (Cozaar 50 Mg Tablet) 50 mg PO DAILY [facility] Stop: 10/31/17 09:59 Last Admin: 10/02/17 10:15 Dose: Not Given Methocarbamol (Robaxin 500 Mg Tablet) 500 mg PO TIDP PRN PRN Reason: MUSCLE SPASMS Stop: 10/30/17 08:30 Ondansetron HCl (Zofran Inj/Pf 4 Mg/2 Ml Sdv) 4 mg IV Q6HP PRN PRN Reason: Nausea Stop: 10/30/17 08:31 Ondansetron HCl (Zofran Odt 4 Mg Tablet) 4 mg PO Q6HP PRN PRN Reason: Nausea Stop: 10/30/17 08:31 Oxybutynin Chloride (Ditropan 5 Mg Tablet) 5 mg PO Q12 GILES Stop: 10/30/17 21:59 Last Admin: 10/02/17 23:10 Dose: 5 mg Oxycodone HCl (Oxy-Ir 5 Mg Tablet) 5 mg PO Q6HP PRN PRN Reason: FOR PAIN SCALE OF 1 Stop: 10/07/17 08:31 Last Admin: 09/30/17 18:35 Dose: 5 mg Simvastatin (Zocor 40 Mg Tablet) 40 mg PO QPM GILES Stop: 10/30/17 17:59 Last Admin: 10/02/17 17:23 Dose: 40 mg Sodium Chloride (Saline Flush 2.5 Ml Monoject Prefil Syrin) 2.5 ml IV Q8 GILES Stop: 10/30/17 13:59 Last Admin: 10/03/17 05:26 Dose: 2.5 ml Trazodone HCl (Desyrel 50 Mg Tablet) 150 mg PO QHS GILES Stop: 10/30/17 21:59 Last Admin: 10/02/17 23:10 Dose: 150 mg Zolpidem Tartrate (Ambien 5 Mg Tablet) 5 mg PO HSP PRN PRN Reason: SLEEP OR INSOMNIA Stop: 10/07/17 08:31 - Allergies Allergies/Adverse Reactions: No Known Allergies Allergy (Verified 09/16/17 18:43) - Diet/Activity Discharge Diet: As Tolerated, Regular Hospital Course Hospital Course: 67-year-old white female who was admitted to the hospital to the OR to undergo elective total right hip arthroplasty. Patient undergoes this procedure with no complications and is taken to PACU in satisfactory condition. She was then transferred to the surgical floor where she is seen by physical therapy for weightbearing as tolerated and nursing staff as well as Dr. Benavides for pain control. She makes very slow progress with physical therapy only ambulating up to 10 steps independently postoperatively. She will need to continue to work with physical therapy upon discharge to improve strength range of motion of right lower extremity. She will be discharged to a long-term facility today it is advised that she make use of physical therapy services available. She will also be discharged with wheeled walker bedside commode. Physical Exam Vital Signs: Temp Pulse Resp BP Pulse Ox 38.2 C H 95 16 110/88 H 93 10/03/17 00:00 10/03/17 00:00 10/03/17 00:00 10/03/17 00:00 10/03/17 00:00 Intake & Output 10/01/17 10/02/17 10/03/17 06:59 06:59 06:59 Intake Total 4666 594 1277 Output Total 2850 550 650 Balance 1816 44 627 General appearance: PRESENT: no acute distress, well-developed, well-nourished Head exam: PRESENT: atraumatic, normocephalic Respiratory exam: PRESENT: unlabored, other - Patient coughs multiple times throughout exam this morning. Pulses: PRESENT: normal dorsalis pedis pul Vascular exam: PRESENT: normal capillary refill Extremities exam: PRESENT: other - Patient lying recumbent in hospital bed with bilateral lower extremities in full extension. Her OpSite honeycomb dressing is clean dry and intact. This is left in place. She has minimal pedal edema and brisk capillary refill to bilateral lower extremities. Her sensory motor functions are intact and distal neurovascular exam is intact. Musculoskeletal exam: PRESENT: ambulatory, other - Patient makes very slow progress of physical therapy only ambulating up to 10 steps independently postoperatively. She will need to make use of physical therapy services at long-term facility to improve strength range of motion of right lower extremity and work towards further ambulation. Neurological exam: PRESENT: alert, awake, oriented to person, oriented to place , oriented to time, oriented to situation, CN II-XII grossly intact. ABSENT: motor sensory deficit Psychiatric exam: PRESENT: appropriate affect, normal mood. ABSENT: homicidal ideation, suicidal ideation Skin exam: PRESENT: dry, intact, warm. ABSENT: cyanosis, rash Results Laboratory Results: 10/02/17 04:30 10/01/17 05:12 09/30/17 05:59 Blood Type A POSITIVE Antibody Screen NEGATIVE Impressions: Pelvis X-Ray 09/30/17 08:33 IMPRESSION: 1 Post surgical changes right hip. Total right hip prostheses. 2. No acute fracture or dislocation. 3 Slight degenerative changes at the left hip. Plan Discharge Plan: 67-year-old white female 3 days status post total right hip arthroplasty. Patient has made very slow progress with physical therapy only ambulating up to 10 steps independently. She will work with physical therapy again today before she is discharged to a long-term facility. She also had a slight fever with a maximum temperature of 38.2C. This may be the result of transfusion of 2 units of packed red blood cells yesterday. Transfusion was deemed necessary as her hematocrit had dropped to a level of 24. Hematocrit level is still pending this morning. She will be transferred to long-term facility today with wheeled walker and bedside commode. She will need to make use of physical therapy services as well as long-term staff to facilitate optimal recovery postoperatively. She will follow-up with [facility] for surgery and Dr. Benavides and Andrew MEDINA 2 weeks postoperatively for staple removal and reevaluation. Time Spent: Less than 30 Minutes
[2017-10-03 07:25] LABS: HEMATOCRIT 33.9 % (36.0-47.0); MEAN CORPUSCULAR HEMOGLOBIN 29.8 pg (27.0-33.4); MEAN CORPUSCULAR HGB CONC 33.6 g/dL (32.0-36.0); MEAN CORPUSCULAR VOLUME 89 fl (80-97); PLATELET COUNT 211 10^3/uL (150-450); RED BLOOD COUNT 3.82 10^6/uL (3.72-5.28); RED CELL DISTRIBUTION WIDTH 13.6 % (11.5-14.0); WHITE BLOOD COUNT 11.1 10^3/uL (4.0-10.5)
[2017-10-03 07:35] LABS: HEMOGLOBIN 11.4 g/dL (12.0-15.5)
[2017-10-03] MEDS: ASPIRIN 81 MG TABLET, CHEWABLE PO SCH (10:42)
[2017-10-03] MEDS: LOSARTAN POTASSIUM 50 MG TABLET PO SCH (10:42)
[2017-10-03] MEDS: OXYBUTYNIN CHLORIDE 5 MG TABLET PO SCH ×2 (10:43→22:33)
[2017-10-03] MEDS: DULOXETINE HCL 30 MG CAPSULE.DR PO SCH (10:43)
[2017-10-03] MEDS: SIMVASTATIN 40 MG TABLET PO SCH (17:46)
[2017-10-03] MEDS: OXYCODONE HCL IR 5 MG TABLET PO PRN (20:07)
[2017-10-03] MEDS: TRAZODONE HCL 50 MG TABLET PO SCH (22:33)
[2017-10-04] MEDS: GABAPENTIN 300 MG CAPSULE PO SCH ×5 (06:19→23:23)
[2017-10-04] MEDS: LANSOPRAZOLE 30 MG TAB.RAP.DR PO SCH (06:20)
--- NOTE | 2017-10-04 06:33 | PDOC PROGRESS REPORT ---
Subjective Progress Note for:: 10/04/17 Subjective:: Patient lying recumbent asleep in hospital bed this morning she is aroused with name calling and answers questions appropriately. Patient reports she was comfortable overnight and is proud of her progress with physical therapy. Reason For Visit: RIGHT HIP ARTHRITIS Physical Exam Vital Signs: Temp Pulse Resp BP Pulse Ox 37.2 C 73 16 104/48 L 95 10/04/17 00:00 10/04/17 00:00 10/04/17 00:00 10/04/17 00:00 10/04/17 00:00 Intake & Output 10/02/17 10/03/17 10/04/17 06:59 06:59 06:59 Intake Total 594 1277 3097 Output Total 557 705 1766 Balance 44 627 1327 Physical Exam: Physical exam grossly unchanged from exam completed yesterday. General appearance: PRESENT: no acute distress, well-developed, well-nourished Head exam: PRESENT: atraumatic, normocephalic Respiratory exam: PRESENT: unlabored Pulses: PRESENT: normal dorsalis pedis pul, +2 pedal pulses bilateral Vascular exam: PRESENT: normal capillary refill Extremities exam: PRESENT: tenderness Additional comments: Physical exam grossly unchanged from day previous. Of note patient notes that she is tender to palpation along the postop site and down the lateral aspect of proximal thigh. Musculoskeletal exam: PRESENT: ambulatory Additional comments: Patient makes further progress with physical therapy ambulating 20 feet independently she will continue to work with physical therapy until she is discharged her tertiary care facility where she will make further progress with PT services offered there. Neurological exam: PRESENT: alert, awake, oriented to person, oriented to place , oriented to time, oriented to situation, CN II-XII grossly intact. ABSENT: motor sensory deficit Psychiatric exam: PRESENT: appropriate affect, normal mood. ABSENT: homicidal ideation, suicidal ideation Skin exam: PRESENT: dry, intact, warm. ABSENT: cyanosis, rash Results Laboratory Results: 10/03/17 06:52 10/01/17 05:12 10/03/17 06:52 WBC 11.1 H RBC 3.82 Hgb 11.4 L D Hct 33.9 L MCV 89 MCH 29.8 MCHC 33.6 RDW 13.6 Plt Count 211 Impressions: Pelvis X-Ray 09/30/17 08:33 IMPRESSION: 1 Post surgical changes right hip. Total right hip prostheses. 2. No acute fracture or dislocation. 3 Slight degenerative changes at the left hip. Assessment & Plan - Diagnosis (1) Arthritis of right hip Is this a current diagnosis for this admission?: Yes - Plan Summary Plan Summary: 67-year-old white female 4 days status post total right hip arthroplasty. Patient will continue to work with physical therapy in the hospital and at her tertiary care facility to improve strength and range of motion of right lower extremity. She is set up to be discharged and transferred to tertiary care facility. Once placement is identified she will then be discharged.
[2017-10-04] MEDS: OXYCODONE HCL IR 5 MG TABLET PO PRN ×2 (09:02→19:32)
[2017-10-04] MEDS: DULOXETINE HCL 30 MG CAPSULE.DR PO SCH (09:02)
[2017-10-04] MEDS: ASPIRIN 81 MG TABLET, CHEWABLE PO SCH (09:02)
[2017-10-04] MEDS: LOSARTAN POTASSIUM 50 MG TABLET PO SCH (09:03)
[2017-10-04] MEDS: OXYBUTYNIN CHLORIDE 5 MG TABLET PO SCH ×2 (09:04→21:38)
[2017-10-04] MEDS ORDERED: MAGNESIUM CITRATE 296 ML BOTTLE PO PRN (09:30)
[2017-10-04] MEDS: HYDROMORPHONE HCL INJ/PF 2 MG/ML AMPULE IV PRN ×3 (11:02→23:22)
[2017-10-04] MEDS ORDERED: MAGNESIUM CITRATE 296 ML BOTTLE PO ONE (14:30)
[2017-10-04] MEDS: SIMVASTATIN 40 MG TABLET PO SCH (18:25)
[2017-10-04] MEDS: TRAZODONE HCL 50 MG TABLET PO SCH (21:39)
[2017-10-05] MEDS: GABAPENTIN 300 MG CAPSULE PO SCH ×2 (05:26→12:02)
[2017-10-05] MEDS: LANSOPRAZOLE 30 MG TAB.RAP.DR PO SCH (05:26)
--- NOTE | 2017-10-05 07:56 | PDOC PROGRESS REPORT ---
Subjective Progress Note for:: 10/05/17 Reason For Visit: RIGHT HIP ARTHRITIS 67-year-old week female postop day 5 status post right hip arthroplasty. Patient with limited progress with physical therapy. Physical Exam Vital Signs: Temp Pulse Resp BP Pulse Ox 37.1 C 61 16 101/55 L 100 10/04/17 23:27 10/04/17 23:27 10/04/17 23:27 10/04/17 23:27 10/04/17 23:27 Intake & Output 10/04/17 10/05/17 10/06/17 06:59 06:59 06:59 Intake Total 3097 620 Output Total 1770 1600 Balance 1327 -980 General appearance: PRESENT: no acute distress Head exam: PRESENT: normocephalic Respiratory exam: PRESENT: unlabored Cardiovascular exam: PRESENT: RRR Pulses: PRESENT: +1 pedal pulses bilateral Vascular exam: PRESENT: normal capillary refill GI/Abdominal exam: PRESENT: soft Rectal exam: PRESENT: deferred Extremities exam: PRESENT: other - Right hip wound clean dry and intact. Distal neurovascular examination is intact. Leg lengths are equal. Neurological exam: PRESENT: alert, awake, oriented to person, oriented to place , oriented to time, oriented to situation. ABSENT: motor sensory deficit Psychiatric exam: PRESENT: flat affect, normal mood. ABSENT: homicidal ideation , suicidal ideation Skin exam: PRESENT: dry, intact, warm. ABSENT: cyanosis, rash Results Laboratory Results: 10/03/17 06:52 10/01/17 05:12 Impressions: Pelvis X-Ray 09/30/17 08:33 IMPRESSION: 1 Post surgical changes right hip. Total right hip prostheses. 2. No acute fracture or dislocation. 3 Slight degenerative changes at the left hip. Status: Imported from PACS Assessment & Plan - Diagnosis (1) Arthritis of right hip Is this a current diagnosis for this admission?: Yes Plan: Status post right hip arthroplasty with slow postoperative rehabilitation (2) Acute blood loss as cause of postoperative anemia Is this a current diagnosis for this admission?: Yes Plan: Hematocrit 33.9% - Time Time Spent with patient: 15-24 minutes Anticipated discharge: SNF Within: when bed available - She is regarding choice of senior care facilities are a barrier to discharge at this point.
[2017-10-05 08:04] VITALS: BP 118/61
[2017-10-05] MEDS: OXYCODONE HCL IR 5 MG TABLET PO PRN (08:07)
[2017-10-05] MEDS: ACETAMINOPHEN 325 MG TABLET PO PRN (08:07)
[2017-10-05] MEDS ORDERED: BISACODYL 10 MG SUPP.RECT PR ONE (10:00)
[2017-10-05] MEDS: ASPIRIN 81 MG TABLET, CHEWABLE PO SCH (10:12)
[2017-10-05] MEDS: LOSARTAN POTASSIUM 50 MG TABLET PO SCH (10:12)
[2017-10-05] MEDS: DULOXETINE HCL 30 MG CAPSULE.DR PO SCH (10:12)
[2017-10-05] MEDS: OXYBUTYNIN CHLORIDE 5 MG TABLET PO SCH (10:13)
[2017-10-05] MEDS: HYDROMORPHONE HCL INJ/PF 2 MG/ML AMPULE IV PRN (12:02)
== END 2017-10-05 13:45 | DRG 470 ==
LOC: INOR 09-30 05:39 → EDSTATUS 09-30 07:30 → 4S 09-30 09:51
PROVIDERS: ADMIT Orthopaedic Surgery; ATTEND Orthopaedic Surgery
PROC: 0SR902Z Replacement of Right Hip Joint with Metal on Polyethylene Synthetic Substitute, Open Approach (ICD-10-PCS; principal; 2017-09-30 07:30)
PROC: 30233N1 Transfusion of Nonautologous Red Blood Cells into Peripheral Vein, Percutaneous Approach (ICD-10-PCS; 2017-10-02)
DX: M16.11 Unilateral primary osteoarthritis, right hip (principal); D62 Acute posthemorrhagic anemia; I10 Essential (primary) hypertension; R50.82 Postprocedural fever; E78.5 Hyperlipidemia, unspecified; E11.9 Type 2 diabetes mellitus without complications; Z96.652 Presence of left artificial knee joint; Z90.710 Acquired absence of both cervix and uterus; G89.29 Other chronic pain; Z79.4 Long term (current) use of insulin; Z79.899 Other long term (current) drug therapy; Z79.82 Long term (current) use of aspirin; Z82.49 Family history of ischemic heart disease and other diseases of the circulatory system
CPT/HCPCS: 01214; 36415; 36430; 72170; 80048; 82947; 82962; 84132; 85027; 86850; 86900; 86901; 86920; 88304; 88311; 94799; C1713; C9290; G8978-GP; G8979-GP; G8987-GO; G8988-GO; J0131; J0330; J0690; J1170; J1741; J1815; J2250; J2270; J2310; J2405; J2704; J3010; J3370; J3490; J7050; J7060; P9016

== ENCOUNTER → 2017-09-09 | Outpatient (CLI) | payer MEDICARE, OTHER ==
[2017-09-09 18:10] LABS: APPEARANCE,URINE CLEAR; BILIRUBIN,URINE NEGATIVE (NEGATIVE); COLOR,URINE YELLOW; GLUCOSE, URINE NEGATIVE (NEGATIVE); KETONES,URINE NEGATIVE (NEGATIVE); LEUKOCYTE ESTERASE,URINE NEGATIVE (NEGATIVE); NITRITE,URINE NEGATIVE (NEGATIVE); PROTEIN,URINE NEGATIVE (NEGATIVE); URINE SPECIFIC GRAVITY 1.018; UROBILINOGEN,URINE NEGATIVE mg/dL (<2.0)
[2017-09-09 18:15] LABS: APPEARANCE,URINE CLEAR; BILIRUBIN,URINE NEGATIVE (NEGATIVE); COLOR,URINE YELLOW; GLUCOSE, URINE NEGATIVE (NEGATIVE); KETONES,URINE NEGATIVE (NEGATIVE); LEUKOCYTE ESTERASE,URINE NEGATIVE (NEGATIVE); NITRITE,URINE NEGATIVE (NEGATIVE); PROTEIN,URINE NEGATIVE (NEGATIVE); URINE SPECIFIC GRAVITY 1.018; UROBILINOGEN,URINE NEGATIVE mg/dL (<2.0)
[2017-09-09 18:22] LABS: ABSOLUTE BASOPHILS # (AUTO) 0.1 10^3/uL (0.0-0.2); ABSOLUTE EOSINOPHILS # (AUTO) 0.1 10^3/uL (0.0-0.6); ABSOLUTE MONOCYTES (AUTO) 0.7 10^3/uL (0.1-1.4); ABSOLUTE NEUT (AUTO) 4.9 10^3/uL (1.7-8.2); EOSINOPHILS % (AUTO) 1.3 % (0-6); HEMATOCRIT 38.3 % (36.0-47.0); HEMOGLOBIN 12.7 g/dL (12.0-15.5); LYMPHOCYTES % (AUTO) 41.3 % (13-45); MEAN CORPUSCULAR HEMOGLOBIN 29.1 pg (27.0-33.4); MEAN CORPUSCULAR HGB CONC 33.1 g/dL (32.0-36.0); MEAN CORPUSCULAR VOLUME 88 fl (80-97); MONOCYTES % (AUTO) 6.7 % (3-13); PLATELET COUNT 336 10^3/uL (150-450); RED BLOOD COUNT 4.36 10^6/uL (3.72-5.28); RED CELL DISTRIBUTION WIDTH 15.4 % (11.5-14.0); SEGMENTED NEUTROPHILS % (AUTO) 49.7 % (42-78); TOTAL CELLS COUNTED % (AUTO) 100 %; WHITE BLOOD COUNT 9.8 10^3/uL (4.0-10.5)
[2017-09-09 18:27] LABS: ABSOLUTE BASOPHILS # (AUTO) 0.1 10^3/uL (0.0-0.2); ABSOLUTE EOSINOPHILS # (AUTO) 0.1 10^3/uL (0.0-0.6); ABSOLUTE MONOCYTES (AUTO) 0.7 10^3/uL (0.1-1.4); ABSOLUTE NEUT (AUTO) 4.9 10^3/uL (1.7-8.2); EOSINOPHILS % (AUTO) 1.3 % (0-6); HEMATOCRIT 38.3 % (36.0-47.0); HEMOGLOBIN 12.7 g/dL (12.0-15.5); LYMPHOCYTES % (AUTO) 41.3 % (13-45); MEAN CORPUSCULAR HEMOGLOBIN 29.1 pg (27.0-33.4); MEAN CORPUSCULAR HGB CONC 33.1 g/dL (32.0-36.0); MEAN CORPUSCULAR VOLUME 88 fl (80-97); MONOCYTES % (AUTO) 6.7 % (3-13); PLATELET COUNT 336 10^3/uL (150-450); RED BLOOD COUNT 4.36 10^6/uL (3.72-5.28); RED CELL DISTRIBUTION WIDTH 15.4 % (11.5-14.0); SEGMENTED NEUTROPHILS % (AUTO) 49.7 % (42-78); TOTAL CELLS COUNTED % (AUTO) 100 %; WHITE BLOOD COUNT 9.8 10^3/uL (4.0-10.5)
[2017-09-09 18:33] LABS: ALANINE AMINOTRANSFERASE 24 U/L (9-52); ALBUMIN 4.7 g/dL (3.5-5.0); ALKALINE PHOSPHATASE 50 U/L (38-126); ANION GAP 12 (5-19); ASPARTATE AMINO TRANSFERASE 33 U/L (14-36); BILIRUBIN,DIRECT 0.3 mg/dL (0.0-0.4); BILIRUBIN,TOTAL 0.7 mg/dL (0.2-1.3); BLOOD UREA NITROGEN 18 mg/dL (7-20); CALCIUM 10.3 mg/dL (8.4-10.2); CARBON DIOXIDE 27 mmol/L (22-30); CHLORIDE 101 mmol/L (98-107); GLUCOSE 101 mg/dL (75-110); POTASSIUM 4.3 mmol/L (3.6-5.0); SODIUM 140.1 mmol/L (137-145); TOTAL PROTEIN 7.5 g/dL (6.3-8.2)
[2017-09-09 19:04] LABS: ANION GAP 12 (5-19); BLOOD UREA NITROGEN 18 mg/dL (7-20); CALCIUM 10.3 mg/dL (8.4-10.2); CARBON DIOXIDE 27 mmol/L (22-30); CHLORIDE 101 mmol/L (98-107); GLUCOSE 101 mg/dL (75-110); POTASSIUM 4.3 mmol/L (3.6-5.0); SODIUM 140.1 mmol/L (137-145)
== END ==
LOC: OD 16:53
PROVIDERS: ATTEND Family Medicine
DX: Z01.818 Encounter for other preprocedural examination (principal); E11.9 Type 2 diabetes mellitus without complications; I10 Essential (primary) hypertension
CPT/HCPCS: 36415; 80048; 80053; 81001; 83036; 85025

== ENCOUNTER 2017-09-16 17:35 | Emergency (ER) | payer OTHER, MEDICARE ==
[2017-09-16] MEDS ORDERED: HYDROMORPHONE HCL INJ/PF 2 MG/ML AMPULE IM ONE (18:49)
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
[2017-09-16 20:57] VITALS: BP 155/84
[2017-09-16] MEDS ORDERED: HYDROCODONE/ACETAMINOPHEN 5-325 MG (6 TAB/ER DISP) PO PRN (21:07)
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
== END 2017-09-16 21:20 | disposition home or self-care (01) ==
LOC: ER 17:35
DX: S39.012A Strain of muscle, fascia and tendon of lower back, initial encounter (principal); S76.011A Strain of muscle, fascia and tendon of right hip, initial encounter; R03.0 Elevated blood-pressure reading, without diagnosis of hypertension; V43.52XA Car driver injured in collision with other type car in traffic accident, initial encounter; I10 Essential (primary) hypertension; E11.9 Type 2 diabetes mellitus without complications; Z90.49 Acquired absence of other specified parts of digestive tract; Z90.710 Acquired absence of both cervix and uterus
CPT/HCPCS: 99283; 96372; 73502; 72100; J1170

== ENCOUNTER → 2018-08-05 | Outpatient (CLI) | payer MEDICARE, OTHER ==
[2018-08-05 15:54] LABS: ABSOLUTE BASOPHILS # (AUTO) 0.1 10^3/uL (0.0-0.2); ABSOLUTE EOSINOPHILS # (AUTO) 0.2 10^3/uL (0.0-0.6); ABSOLUTE LYMPHOCYTES (AUTO) 2.4 10^3/uL (0.5-4.7); ABSOLUTE MONOCYTES (AUTO) 0.8 10^3/uL (0.1-1.4); ABSOLUTE NEUT (AUTO) 5.1 10^3/uL (1.7-8.2); BASOPHILS % (AUTO) 0.8 % (0-2); EOSINOPHILS % (AUTO) 1.9 % (0-6); HEMATOCRIT 35.6 % (36.0-47.0); HEMOGLOBIN 11.9 g/dL (12.0-15.5); LYMPHOCYTES % (AUTO) 28.6 % (13-45); MEAN CORPUSCULAR HEMOGLOBIN 30.2 pg (27.0-33.4); MEAN CORPUSCULAR HGB CONC 33.3 g/dL (32.0-36.0); MEAN CORPUSCULAR VOLUME 91 fl (80-97); MONOCYTES % (AUTO) 8.9 % (3-13); PLATELET COUNT 355 10^3/uL (150-450); RED BLOOD COUNT 3.93 10^6/uL (3.72-5.28); SEGMENTED NEUTROPHILS % (AUTO) 59.8 % (42-78); TOTAL CELLS COUNTED % (AUTO) 100 %; WHITE BLOOD COUNT 8.5 10^3/uL (4.0-10.5)
[2018-08-05 16:25] LABS: ANION GAP 10 (5-19); BLOOD UREA NITROGEN 17 mg/dL (7-20); C-REACTIVE PROTEIN 6.3 mg/L (<10.0); CALCIUM 9.8 mg/dL (8.4-10.2); CARBON DIOXIDE 25 mmol/L (22-30); CHLORIDE 103 mmol/L (98-107); GLUCOSE 103 mg/dL (75-110); POTASSIUM 4.7 mmol/L (3.6-5.0); SODIUM 138.4 mmol/L (137-145)
[2018-08-05 16:36] LABS: ERYTHROCYTE SEDIMENTATION RATE 16 mm/hr (0-30)
== END ==
LOC: OD 15:07
PROVIDERS: ATTEND Orthopaedic Surgery
DX: M25.551 Pain in right hip (principal)
CPT/HCPCS: 36415; 80048; 85025; 85652; 86140

== ENCOUNTER → 2018-08-12 | Outpatient (CLI) | payer MEDICARE, OTHER ==
--- NOTE | 2018-08-12 16:20 | RADIOLOGY REPORT (SQ) ---
EXAM DESCRIPTION: NM 3 PHASE BONE SCAN COMPLETED DATE/TIME: 08/12/2018 1:30 pm REASON FOR STUDY: PAIN IN RIGHT HIP (M25.551) M25.551 PAIN IN RIGHT HIP COMPARISON: Right hip films 09/16/2017, 09/30/2017 RADIONUCLIDE AND DOSE: 21.6 millicuries Tc99m MDP. The route of agent administration: Intravenous. ADDITIONAL DRUGS AND DOSES: None. TECHNIQUE: Following injection of the radiopharmaceutical, serial blood flow images acquired. Equil ibrium blood pool images then acquired. Routine delayed images at 3 hour acquired of the areas of cl inical concern with additional focused images as needed. AREA OF INTEREST: Bilateral hips LIMITATIONS: None. FINDINGS: VASCULAR FLOW IMAGES: No asymmetry or focal areas of hyperemia. BLOOD POOL IMAGES: Decreased activity over the right femoral head on the blood pool images related to the right hip prosthesis very BONES: On the delayed images of the hips, there is decreased activity over the right femoral head rel ated to the right hip prosthesis. Subtle increased uptake is present along the right greater and les ser trochanter, and along the right proximal femoral diaphysis at the distal tip of the femoral compo nent. Findings could indicate femoral component loosening. KIDNEYS: Symmetric excretion without obstruction. OTHER: No other significant finding. IMPRESSION: Increased uptake right proximal femur along the greater and lesser trochanter and along the proximal diaphysis at the tip of the right femoral component, total hip replacement. Increased u ptake could be seen in prosthesis loosening. COMMENT: Quality measure 147: Current bone scan is compared with any available plain radiographs, p rior bone scans, and CT/MRI. TECHNICAL DOCUMENTATION: JOB ID: [id number] [employer]- All Rights Reserved Reading location - IP/workstation name: [email or web address]
== END ==
LOC: RAD 10:25
PROVIDERS: ATTEND Orthopaedic Surgery
DX: M25.551 Pain in right hip (principal)
CPT/HCPCS: 78315; A9561; Q9969

== ENCOUNTER → 2018-10-29 | Outpatient (CLI) | payer MEDICARE, OTHER ==
[2018-10-29 14:03] LABS: HEMATOCRIT 36.1 % (36.0-47.0); HEMOGLOBIN 12.1 g/dL (12.0-15.5); MEAN CORPUSCULAR HEMOGLOBIN 29.4 pg (27.0-33.4); MEAN CORPUSCULAR HGB CONC 33.4 g/dL (32.0-36.0); MEAN CORPUSCULAR VOLUME 88 fl (80-97); PLATELET COUNT 296 10^3/uL (150-450); RED BLOOD COUNT 4.11 10^6/uL (3.72-5.28); RED CELL DISTRIBUTION WIDTH 14.2 % (11.5-14.0)
[2018-10-29 14:25] LABS: C-REACTIVE PROTEIN < 5.0 mg/L (<10.0)
[2018-10-29 14:41] LABS: ERYTHROCYTE SEDIMENTATION RATE 14 mm/hr (0-30)
[2018-10-31 10:43] LABS: CYCLIC CITRUL PEPTIDE IGG/A AB 4 units (0-19)
== END ==
LOC: OD 13:01
PROVIDERS: ATTEND Orthopaedic Surgery
DX: M25.50 Pain in unspecified joint (principal)
CPT/HCPCS: 36415; 84550; 85027; 85652; 86038; 86140; 86200; 86430

== ENCOUNTER 2019-12-19 17:43 | Observation (INO) | payer MEDICARE ==
--- NOTE | 2019-12-19 17:56 | ER Document Report ---
ED Medical Screen (RME) - General Chief Complaint: Hand Pain Stated Complaint: HAND PAIN Time Seen by Provider: 12/19/19 17:49 Primary Care Provider: ZEV ZAMORA DO [Primary Care Provider] - Follow up as needed Information source: Patient Notes: Patient presents with left hand infection. Patient states she had an insect bite last week that ended up getting infected. Patient states she placed a needle in the site of infection 4 days ago in an attempt to drain it. Patient went to urgent care 3 days ago was placed on Bactrim. Patient does have a history of diabetes. I have greeted and performed a rapid initial assessment of this patient. A comprehensive ED assessment and evaluation of the patient, analysis of test results and completion of the medical decision making process will be conducted by additional ED providers. TRAVEL OUTSIDE OF THE [place] IN LAST 30 DAYS: No - Related Data Allergies/Adverse Reactions: No Known Allergies Allergy (Verified 12/19/19 17:48) Past Medical History - Past Medical History Cardiac Medical History: Reports: Hx Hypercholesterolemia, Hx Hypertension Denies: Hx Atrial Fibrillation, Hx Congestive Heart Failure, Hx Coronary Artery Disease, Hx Heart Attack, Hx Peripheral Vascular Disease, Hx Heart Murmur Pulmonary Medical History: Reports: Hx Pneumonia Denies: Hx Asthma, Hx Bronchitis, Hx COPD Neurological Medical History: Denies: Hx Cerebrovascular Accident, Hx Seizures Endocrine Medical History: Reports: Hx Diabetes Mellitus Type 2. Denies: Hx Graves' Disease, Hx Hyperthyroidism, Hx Hypothyroidism Renal/ Medical History: Denies: Hx Peritoneal Dialysis GI Medical History: Reports: Hx Gastroesophageal Reflux Disease. Denies: Hx Crohn's Disease, Hx Hiatal Hernia, Hx Irritable Bowel, Hx Liver Failure, Hx Pancreatitis, Hx Ulcer Musculoskeltal Medical History: Reports Hx Arthritis, Denies Hx Fibromyalgia, Denies Hx Muscular Dystrophy, Denies Hx Systemic Lupus Erythematosus Psychiatric Medical History: Reports: Hx Depression Denies: Hx Bipolar Disorder, Hx Post Traumatic Stress Disorder, Hx Schizophrenia Traumatic Medical History: Denies: Hx Fractures Past Surgical History: Reports: Hx Appendectomy, Hx Cholecystectomy, Hx Hysterectomy, Hx Orthopedic Surgery - back x3, bilateral knees. Denies: Hx Bowel Surgery, Hx Section, Hx Colostomy, Hx Coronary Artery Bypass Graft, Hx Gastric Bypass Surgery, Hx Herniorrhaphy, Hx Mastectomy, Hx Pacemaker, Hx Tonsillectomy, Hx Tubal Ligation - Immunizations Hx Diphtheria, Pertussis, Tetanus Vaccination: Yes Physical Exam - Vital signs Vitals: Temp Pulse Resp BP Pulse Ox 98.5 F 96 18 156/92 H 99 12/19/19 17:47 12/19/19 17:47 12/19/19 17:47 12/19/19 17:47 12/19/19 17:47 - General Notes: Patient with area of infection to the base of the left thumb with surrounding erythema that extends up to the proximal left forearm Course - Vital Signs Vital signs: Temp Pulse Resp BP Pulse Ox 98.5 F 96 18 156/92 H 99 12/19/19 17:49 12/19/19 17:47 12/19/19 17:47 12/19/19 17:47 12/19/19 17:47 Doctor's Discharge - Discharge Referrals: ZEV ZAMORA DO [Primary Care Provider] - Follow up as needed
[2019-12-19 18:24] LABS: ABSOLUTE BASOPHILS # (AUTO) 0.1 10^3/uL (0.0-0.2); ABSOLUTE LYMPHOCYTES (AUTO) 1.8 10^3/uL (0.5-4.7); ABSOLUTE MONOCYTES (AUTO) 1.3 10^3/uL (0.1-1.4); ABSOLUTE NEUT (AUTO) 11.4 10^3/uL (1.7-8.2); BASOPHILS % (AUTO) 0.6 % (0-2); EOSINOPHILS % (AUTO) 0.1 % (0-6); HEMOGLOBIN 13.5 g/dL (12.0-15.5); LYMPHOCYTES % (AUTO) 12.4 % (13-45); MEAN CORPUSCULAR HEMOGLOBIN 30.7 pg (27.0-33.4); MEAN CORPUSCULAR HGB CONC 33.8 g/dL (32.0-36.0); MEAN CORPUSCULAR VOLUME 91 fl (80-97); MONOCYTES % (AUTO) 9.2 % (3-13); PLATELET COUNT 336 10^3/uL (150-450); RED CELL DISTRIBUTION WIDTH 14.5 % (11.5-14.0); SEGMENTED NEUTROPHILS % (AUTO) 77.7 % (42-78); TOTAL CELLS COUNTED % (AUTO) 100 %; WHITE BLOOD COUNT 14.6 10^3/uL (4.0-10.5)
--- NOTE | 2019-12-19 18:37 | RADIOLOGY REPORT (SQ) ---
EXAM DESCRIPTION: HAND LEFT 3 VIEWS IMAGES COMPLETED DATE/TIME: 12/19/2019 6:18 pm REASON FOR STUDY: L hand infection COMPARISON: None. EXAM PARAMETERS: NUMBER OF VIEWS: Three views. TECHNIQUE: AP, lateral and oblique radiographic images acquired of the left hand. LIMITATIONS: None. FINDINGS: MINERALIZATION: Normal. BONES: No acute fracture or dislocation. No worrisome bone lesions. JOINTS: Marked degenerative changes in the rest with joint space narrowing and sclerosis. Degenerati ve changes in the 2nd metacarpal phalangeal joint. SOFT TISSUES: Dorsal soft tissue swelling. No foreign body. OTHER: No other significant finding. IMPRESSION: DORSAL SOFT TISSUE SWELLING. CHRONIC DEGENERATIVE CHANGES. NO ACUTE BONY FINDINGS. TECHNICAL DOCUMENTATION: JOB ID: [id number] 2010 [employer]- All Rights Reserved Reading location - IP/workstation name: [email or web address]
[2019-12-19] MEDS ORDERED: CEFEPIME 2 GM/D5W RTU 2 GM/50 ML RTUPB IV ONE (18:39)
[2019-12-19] MEDS ORDERED: VANCOMYCIN HCL INJ 1000 MG VIAL IV ONE (18:40)
[2019-12-19 18:41] LABS: ALKALINE PHOSPHATASE 71 U/L (38-126); ANION GAP 13 (5-19); ASPARTATE AMINO TRANSFERASE 24 U/L (14-36); BILIRUBIN,DIRECT 0.1 mg/dL (0.0-0.4); BILIRUBIN,TOTAL 0.9 mg/dL (0.2-1.3); BLOOD UREA NITROGEN 25 mg/dL (7-20); CARBON DIOXIDE 23 mmol/L (22-30); CHLORIDE 97 mmol/L (98-107); GLUCOSE 165 mg/dL (75-110); POTASSIUM 4.2 mmol/L (3.6-5.0); TOTAL PROTEIN 8.8 g/dL (6.3-8.2)
[2019-12-19] MEDS ORDERED: NORMAL SALINE 1000 ML 1,000 ML IV ONE (18:59)
[2019-12-19] MEDS ORDERED: MORPHINE SULFATE 10 MG/ML INJ IV ONE (20:09)
[2019-12-19] MEDS ORDERED: ONDANSETRON HCL INJ/PF 4 MG/2 ML SDV IV ONE (20:10)
[2019-12-19] MEDS ORDERED: DEXTROSE 50%-WATER 25 GM/50 ML DISP.SYRIN IV PRN ×2 (23:08)
[2019-12-19] MEDS ORDERED: GLUCAGON,HUMAN RECOMB 1 MG INJ IM PRN (23:08)
[2019-12-19] MEDS ORDERED: DEXTROSE 40% GEL 15 GM TUBE PO PRN ×2 (23:08)
[2019-12-19] MEDS ORDERED: CLINDAMYCIN 900 MG/D5W RTU 900 MG/50 ML RTUPB IV ONE (23:15)
--- NOTE | 2019-12-19 23:35 | ER Document Report ---
Entered by TRENT EVANS SCRIBE 12/19/19 0061 Acting as scribe for:JOAN WILSON MD ED General - General Chief Complaint: Hand Pain Stated Complaint: HAND PAIN Time Seen by Provider: 12/19/19 17:49 Primary Care Provider: ZEV ZAMORA DO [ACTIVE STAFF] - Follow up as needed Information source: Patient Notes: This 69-year-old female presents to the emergency department complaining of left hand pain from a bug bite that happened five days ago. Patient explained that she felt the bug bite her and noticed a red spot that was raised. Patient said she did not do anything with her bug bite at this time. Patient said that she started noticing fluid build up where the bug bite was located. Patient stated that three days ago she tried to drain and relieve the pressure with a needle. Patient reports that only blood came out of her bug bite. Patient said that the next day she went to the urgent care where they gave her a tetanus shot and antibiotics. Patient said that she has been taking the antibiotics and they told her to return in two days for a check-up. Patient said that when she went to the urgent care this morning, they turned her away because she was running a fever. Patient presents to the emergency department and states that she is having severe pain with swelling on her left hand by the bug bite. Patient reports constipation, drainage from site and red streaks up left arm. TRAVEL OUTSIDE OF THE [place] IN LAST 30 DAYS: No - Related Data Allergies/Adverse Reactions: No Known Allergies Allergy (Verified 12/19/19 17:48) Past Medical History - General Information source: Patient - Social History Smoking Status: Never Smoker Cigarette use (# per day): No Chew tobacco use (# tins/day): No Lives with: Spouse/Significant other Family History: Reviewed & Not Pertinent, COPD Patient has suicidal ideation: No Patient has homicidal ideation: No - Past Medical History Cardiac Medical History: Reports: Hx Hypercholesterolemia, Hx Hypertension Pulmonary Medical History: Reports: Hx Pneumonia Endocrine Medical History: Reports: Hx Diabetes Mellitus Type 2 GI Medical History: Reports: Hx Gastroesophageal Reflux Disease Musculoskeletal Medical History: Reports Hx Arthritis Psychiatric Medical History: Reports: Hx Depression Past Surgical History: Reports: Hx Appendectomy, Hx Cholecystectomy, Hx Hysterectomy, Hx Orthopedic Surgery - back x3, bilateral knees - Immunizations Hx Diphtheria, Pertussis, Tetanus Vaccination: Yes Review of Systems - Review of Systems Constitutional: See HPI, Fever EENT: No symptoms reported Cardiovascular: No symptoms reported Respiratory: No symptoms reported Gastrointestinal: See HPI, Constipation Genitourinary: Incontinence Female Genitourinary: No symptoms reported Musculoskeletal: See HPI, Other - Hand swelling and pain. Skin: See HPI, Change in color, Other - Drainage from bug bite on left hand Hematologic/Lymphatic: No symptoms reported Neurological/Psychological: Depression -: Yes All other systems reviewed and negative Physical Exam - Vital signs Vitals: Temp Pulse Resp BP Pulse Ox 98.5 F 96 18 156/92 H 99 12/19/19 17:47 12/19/19 17:47 12/19/19 17:47 12/19/19 17:47 12/19/19 17:47 - Notes Notes: Physical Exam: General: Alert, appears well. HEENT: Normocephalic. Atraumatic. PERRL. Extraocular movements intact. Oropharynx clear. Neck: Supple. Non-tender. Respiratory: No respiratory distress. Clear and equal breath sounds bilaterally. Cardiovascular: Regular rate and rhythm. Abdominal: Normal Inspection. Non-tender. No distension. Normal Bowel Sounds. Back: No gross abnormalities. Extremities: Moves all four extremities. Upper extremities: Normal ROM. Left dorsal thenar region has an open wound with swelling and erythema that spreads through half the dorsal hand which radiates warm red streaks up 4/5 to elbow. No drainage. Lower extremities: Normal inspection. No edema. Normal ROM. Neurological: Normal cognition. AAOx4. Normal speech. Psychological: Normal affect. Normal Mood. Skin: Warm. Dry. Normal color. Course - Re-evaluation Re-evalutation: 12/19/19 23:[address] Hollins as well as Dr. Palma regarding admitting to the hospital for surgical debridement of her abscess on her dorsal left hand and IV antibiotic and diabetic management of patient during her hospitalization. - Vital Signs Vital signs: Temp Pulse Resp BP Pulse Ox 98.5 F 96 18 156/92 H 99 12/19/19 17:49 12/19/19 17:47 12/19/19 17:47 12/19/19 17:47 12/19/19 17:47 - Laboratory Result Diagrams: 12/19/19 18:06 12/19/19 18:06 Laboratory results interpreted by me: 04/25/20 04/25/20 18:06 18:06 WBC 14.6 H RDW 14.5 H Lymph % (Auto) 12.4 L Absolute Neuts (auto) 11.4 H Sodium 133.4 L Chloride 97 L BUN 25 H Creatinine 1.48 H Est GFR ( Amer) 42 L Est GFR (MDRD) Non-Af 35 L Glucose 165 H Total Protein 8.8 H 12/19/19 23:30 Elevated the white blood cell count consistent with the cellulitis of the left upper extremity. - Diagnostic Test Radiology reviewed: Image reviewed, Reports reviewed Radiology results interpreted by me: 12/19/19 23:30 Hand x-ray shows no acute process. Discharge - Discharge Clinical Impression: Cellulitis of left upper limb Condition: Fair Disposition: ADMITTED INPATIENT Admitting Provider: Gunjan Unit Admitted: Surgical Floor Referrals: ZEV ZAMORA DO [ACTIVE STAFF] - Follow up as needed I personally performed the services described in the documentation, reviewed and edited the documentation which was dictated to the scribe in my presence, and it accurately records my words and actions.
[2019-12-20 00:31] LABS: URINE AMPHETAMINES SCREEN NEGATIVE; URINE BARBITURATES SCREEN NEGATIVE; URINE BENZODIAZEPINES SCREEN NEGATIVE; URINE COCAINE SCREEN NEGATIVE; URINE MARIJUANA (THC) SCREEN NEGATIVE; URINE METHADONE SCREEN NEGATIVE; URINE PHENCYCLIDINE SCREEN NEGATIVE
--- NOTE | 2019-12-20 03:48 | PDOC CONSULTATION ---
Consultation Consult Date: 12/19/19 Attending physician:: EVAN MAYS Provider Consulted: DAVID GUZMAN Consult reason:: Diabetes History of Present Illness Admission Date/PCP: 12/19/19 23:31 TERESA VELEZ MD Patient complains of: Left hand pain and swelling History of Present Illness: JOAQUIN MELISSA is a 69 year old female with a past medical history of hypertension, dyslipidemia, depression and diabetes. She presents with 5 days of pain and swelling to her left hand that began over the base of her right thumb. The area became swollen and she attempted to drain with a needle without significant improvement she saw eval at urgent care receiving antibiotics and a tetanus shot. After oral antibiotics did not improve she reports to the emergency department for eval. She is found to have uncontrolled hypertension, leukocytosis, hyperglycemia and acute renal failure. She is referred to surgery for admission. Past Medical History Cardiac Medical History: Reports: Hyperlipidema, Hypertension Denies: Atrial Fibrillation, Congestive Heart Failure, Coronary Artery Disease, Myocardial Infarction, Peripheral Vascular Disease, Heart Murmur Pulmonary Medical History: Reports: Pneumonia Denies: Asthma, Bronchitis, Chronic Obstructive Pulmonary Disease (COPD) Neurological Medical History: Denies: Seizures Endocrine Medical History: Reports: Diabetes Mellitus Type 2 Denies: Hyperthyroidism, Hypothyroidism GI Medical History: Reports: Gastroesophageal Reflux Disease Denies: Crohn's Disease, Hiatal Hernia Musculoskeltal Medical History: Reports: Arthritis Denies: Fibromyalgia Psychiatric Medical History: Reports: Depression Denies: Bipolar Disorder, Post Traumatic Stress Disorder Hematology: Denies: Anemia Past Surgical History Past Surgical History: Reports: Appendectomy, Cholecystectomy, Hysterectomy, Orthopedic Surgery - back x3, bilateral knees Denies: Amputation, Section, Colostomy, Coronary Artery Bypass Graft, Gastric Bypass Surgery, Herniorrhaphy, Mastectomy, Pacemaker, Tonsillectomy, Tubal Ligation Social History Information Source: Patient Lives with: Spouse/Significant other Smoking Status: Never Smoker Electronic Cigarette use?: No Frequency of Alcohol Use: Social Hx Recreational Drug Use: No Drugs: None Hx Prescription Drug Abuse: No - Advance Directive Resuscitation Status: Full Code Family History Family History: COPD Parental Family History Reviewed: Yes Children Family History Reviewed: Yes Sibling(s) Family History Reviewed.: Yes Medication/Allergy Home Medications: Duloxetine HCl [Cymbalta] 60 mg PO QHS 09/27/17 Gabapentin [Neurontin] 600 mg PO QID 09/27/17 Losartan Potassium [Cozaar 50 mg Tablet] 50 mg PO QHS 09/27/17 Methocarbamol [Robaxin 500 mg Tablet] 500 mg PO TIDP PRN 09/27/17 Oxybutynin Chloride [Ditropan Xl] 10 mg PO QHS 09/27/17 Simvastatin [Zocor 40 mg Tablet] 40 mg PO QPM 09/27/17 Trazodone HCl [Desyrel] 150 mg PO QHS 09/27/17 Bisacodyl [Women's Gentle Laxative] 3 tab PO PRN PRN 12/20/19 Folic Acid [Folvite 1 mg Tablet] 1 tab PO QHS 12/20/19 Golimumab [Simponi Aria] 1 vial IV-INFUSE ASDIR 12/20/19 Hydrocodone/Acetaminophen [[place] 10-325 mg Tablet] 1 tab PO QAMPM PRN 12/20/19 Allergies/Adverse Reactions: No Known Allergies Allergy (Verified 12/19/19 17:48) Review of Systems Constitutional: ABSENT: chills, fever(s), headache(s), weight gain, weight loss Eyes: ABSENT: visual disturbances Ears: ABSENT: hearing changes Cardiovascular: ABSENT: chest pain, dyspnea on exertion, edema, orthropnea, palpitations Respiratory: ABSENT: cough, hemoptysis Gastrointestinal: ABSENT: abdominal pain, constipation, diarrhea, hematemesis, hematochezia, nausea, vomiting Genitourinary: ABSENT: dysuria, hematuria Musculoskeletal: ABSENT: joint swelling Integumentary: ABSENT: rash, wounds Neurological: ABSENT: abnormal gait, abnormal speech, confusion, dizziness, focal weakness, syncope Psychiatric: ABSENT: anxiety, depression, homidical ideation, suicidal ideation Endocrine: ABSENT: cold intolerance, heat intolerance, polydipsia, polyuria Hematologic/Lymphatic: ABSENT: easy bleeding, easy bruising Physical Exam Vital Signs: Temp Pulse Resp BP Pulse Ox 98.4 F 81 18 148/75 H 96 12/20/19 00:56 12/20/19 00:56 12/20/19 00:56 12/20/19 00:56 12/20/19 00:56 Intake & Output 12/18/19 12/19/19 12/20/19 11:59 11:59 11:59 Intake Total 1050 Balance 1050 Weight 68.2 kg General appearance: PRESENT: no acute distress, well-developed, well-nourished Head exam: PRESENT: atraumatic, normocephalic Eye exam: PRESENT: conjunctiva pink, EOMI, PERRLA. ABSENT: scleral icterus Ear exam: PRESENT: normal external ear exam Mouth exam: PRESENT: moist, tongue midline Neck exam: ABSENT: carotid bruit, JVD, lymphadenopathy, thyromegaly Respiratory exam: PRESENT: clear to auscultation marisol. ABSENT: rales, rhonchi, wheezes Cardiovascular exam: PRESENT: RRR. ABSENT: diastolic murmur, rubs, systolic murmur Pulses: PRESENT: normal dorsalis pedis pul Vascular exam: PRESENT: normal capillary refill GI/Abdominal exam: PRESENT: normal bowel sounds, soft. ABSENT: distended, guarding, mass, organolmegaly, rebound, tenderness Rectal exam: PRESENT: deferred Extremities exam: PRESENT: full ROM, tenderness - Right hand swelling and pain, +1 edema. ABSENT: calf tenderness, clubbing, pedal edema Neurological exam: PRESENT: alert, awake, oriented to person, oriented to place, oriented to time, oriented to situation, CN II-XII grossly intact. ABSENT: motor sensory deficit Psychiatric exam: PRESENT: appropriate affect, normal mood. ABSENT: homicidal ideation, suicidal ideation Skin exam: PRESENT: dry, intact, warm. ABSENT: cyanosis, rash Results Laboratory Results: 12/19/19 18:06 12/19/19 18:06 12/19/19 12/19/19 18:06 18:06 WBC 14.6 H RBC 4.40 Hgb 13.5 Hct 40.0 MCV 91 MCH 30.7 MCHC 33.8 RDW 14.5 H Plt Count 336 Seg Neutrophils % 77.7 Sodium 133.4 L Potassium 4.2 Chloride 97 L Carbon Dioxide 23 Anion Gap 13 BUN 25 H Creatinine 1.48 H Est GFR ( Amer) 42 L Glucose 165 H Calcium 10.0 Total Bilirubin 0.9 AST 24 Alkaline Phosphatase 71 Total Protein 8.8 H Albumin 5.0 Impressions: Hand X-Ray 12/19/19 17:54 IMPRESSION: DORSAL SOFT TISSUE SWELLING. CHRONIC DEGENERATIVE CHANGES. NO ACUTE BONY FINDINGS. Assessment and Plan - Diagnosis (1) Hypertension Is this a current diagnosis for this admission?: Yes Plan: Resume outpatient regiment with hydralazine as needed (2) Diabetes Is this a current diagnosis for this admission?: Yes Plan: Discontinue outpatient metformin, Humalog sliding scale ordered. (3) Acute renal failure Is this a current diagnosis for this admission?: Yes Plan: Likely prerenal, IV fluid challenge, avoid nephrotoxic meds and doses follow-up chemistry. (4) Cellulitis of left upper limb Is this a current diagnosis for this admission?: Yes Plan: Defer to surgery. - Time Time Spent with patient: 15-24 minutes
[2019-12-20 05:23] LABS: ANION GAP 9 (5-19); BLOOD UREA NITROGEN 24 mg/dL (7-20); CALCIUM 8.9 mg/dL (8.4-10.2); CARBON DIOXIDE 20 mmol/L (22-30); CHLORIDE 103 mmol/L (98-107); GLUCOSE 124 mg/dL (75-110); POTASSIUM 4.7 mmol/L (3.6-5.0)
[2019-12-20] MEDS ORDERED: CLINDAMYCIN 900 MG/D5W RTU 900 MG/50 ML RTUPB IV SCH (06:00)
[2019-12-20] MEDS: CLINDAMYCIN 900 MG/D5W RTU 900 MG/50 ML RTUPB IV SCH ×3 (06:28→21:36)
--- NOTE | 2019-12-20 06:28 | PDOC H&P ---
History of Present Illness Admission Date/PCP: 12/19/19 23:31 TERESA VELEZ MD Patient complains of: hand cellulitis, pain History of Present Illness: JOAQUIN MELISSA is a 69 year old diabetic female with a one-week history of erythema, induration, and pain of the hand. Patient reports a small amount of purulent drainage. She denies edema. The patient reports "poking it with needles at home". The redness and pain to continue to worsen, despite oral an tibiotics. The patient is a diabetic, who does not check her sugars or take her medications. She has chronic pain syndrome and takes narcotics at home. 2 days ago she was prescribed Bactrim, however this has not helped. Patient presents to the emergency department today for evaluation of her worsening hand cellulitis. She denies chest pain, shortness of breath, fevers, chills, nausea, vomiting, melena, hematochezia, dizziness, orthostasis, headache, seizures. Nothing makes it better or worse. Her pain does not radiate. Past Medical History Cardiac Medical History: Reports: Hyperlipidema, Hypertension Denies: Atrial Fibrillation, Congestive Heart Failure, Coronary Artery Disease, Myocardial Infarction, Peripheral Vascular Disease, Heart Murmur Pulmonary Medical History: Reports: Pneumonia Denies: Asthma, Bronchitis, Chronic Obstructive Pulmonary Disease (COPD) Neurological Medical History: Denies: Seizures Endocrine Medical History: Reports: Diabetes Mellitus Type 2 Denies: Hyperthyroidism, Hypothyroidism GI Medical History: Reports: Gastroesophageal Reflux Disease Denies: Crohn's Disease, Hiatal Hernia Musculoskeltal Medical History: Reports: Arthritis Denies: Fibromyalgia Psychiatric Medical History: Reports: Depression, Other - Chronic pain syndrome Denies: Bipolar Disorder, Post Traumatic Stress Disorder Hematology: Denies: Anemia Past Surgical History Past Surgical History: Reports: Appendectomy, Cholecystectomy, Hysterectomy, Orthopedic Surgery - back x3, bilateral knees Denies: Amputation, Section, Colostomy, Coronary Artery Bypass Graft, Gastric Bypass Surgery, Herniorrhaphy, Mastectomy, Pacemaker, Tonsillectomy, Tubal Ligation Social History Lives with: Spouse/Significant other Smoking Status: Never Smoker Electronic Cigarette use?: No Frequency of Alcohol Use: Social Hx Recreational Drug Use: No Drugs: None Hx Prescription Drug Abuse: No - Advance Directive Resuscitation Status: Full Code Family History Family History: COPD Parental Family History Reviewed: Yes Children Family History Reviewed: Yes Sibling(s) Family History Reviewed.: Yes Medication/Allergy Home Medications: Duloxetine HCl [Cymbalta] 60 mg PO QHS 09/27/17 Gabapentin [Neurontin] 600 mg PO QID 09/27/17 Losartan Potassium [Cozaar 50 mg Tablet] 50 mg PO QHS 09/27/17 Methocarbamol [Robaxin 500 mg Tablet] 500 mg PO TIDP PRN 09/27/17 Oxybutynin Chloride [Ditropan Xl] 10 mg PO QHS 09/27/17 Simvastatin [Zocor 40 mg Tablet] 40 mg PO QPM 09/27/17 Trazodone HCl [Desyrel] 150 mg PO QHS 09/27/17 Bisacodyl [Women's Gentle Laxative] 3 tab PO PRN PRN 12/20/19 Folic Acid [Folvite 1 mg Tablet] 1 tab PO QHS 12/20/19 Golimumab [Simponi Aria] 1 vial IV-INFUSE ASDIR 12/20/19 Hydrocodone/Acetaminophen [[place] 10-325 mg Tablet] 1 tab PO QAMPM PRN 12/20/19 Allergies/Adverse Reactions: No Known Allergies Allergy (Verified 12/19/19 17:48) Review of Systems Constitutional: ABSENT: anorexia, chills, fatigue Eyes: ABSENT: visual disturbances Ears: ABSENT: hearing changes Nose, Mouth, and Throat: ABSENT: sore throat Cardiovascular: ABSENT: chest pain Respiratory: ABSENT: cough Gastrointestinal: ABSENT: abdominal pain, hematemesis, hematochezia, melena, nausea, vomiting Genitourinary: ABSENT: dysuria Musculoskeletal: ABSENT: back pain Neurological: ABSENT: confusion, convulsions, dizziness Psychiatric: ABSENT: anxiety, depression Endocrine: ABSENT: cold intolerance, heat intolerance Hematologic/Lymphatic: ABSENT: easy bleeding, easy bruising Physical Exam Vital Signs: Temp Pulse Resp BP Pulse Ox 98.4 F 81 18 148/75 H 96 12/20/19 00:56 12/20/19 00:56 12/20/19 00:56 12/20/19 00:56 12/20/19 00:56 Intake & Output 12/18/19 12/19/19 12/20/19 06:59 06:59 06:59 Intake Total 1050 Balance 1050 Weight 68.2 kg General appearance: PRESENT: no acute distress, cooperative Head exam: PRESENT: atraumatic, normocephalic Eye exam: PRESENT: EOMI, PERRLA. ABSENT: scleral icterus Mouth exam: PRESENT: moist, neck supple Neck exam: ABSENT: meningismus, tenderness, thyromegaly, tracheal deviation Cardiovascular exam: ABSENT: tachycardia Vascular exam: PRESENT: normal capillary refill GI/Abdominal exam: PRESENT: soft. ABSENT: distended, firm, guarding, rigid, tenderness Rectal exam: PRESENT: deferred Extremities exam: ABSENT: clubbing Musculoskeletal exam: ABSENT: deformity Neurological exam: PRESENT: alert, awake, oriented to person, oriented to place, oriented to time, oriented to situation Psychiatric exam: PRESENT: anxious Focused psych exam: ABSENT: delusional Skin exam: PRESENT: erythema, vesicles Results Laboratory Results: 12/19/19 18:06 12/20/19 04:13 12/19/19 12/19/19 12/20/19 18:06 18:06 04:13 WBC 14.6 H RBC 4.40 Hgb 13.5 Hct 40.0 MCV 91 MCH 30.7 MCHC 33.8 RDW 14.5 H Plt Count 336 Seg Neutrophils % 77.7 Sodium 133.4 L 132.4 L Potassium 4.2 4.7 Chloride 97 L 103 Carbon Dioxide 23 20 L Anion Gap 13 9 BUN 25 H 24 H Creatinine 1.48 H 1.20 Est GFR ( Amer) 42 L 54 L Glucose 165 H 124 H Calcium 10.0 8.9 Total Bilirubin 0.9 AST 24 Alkaline Phosphatase 71 Total Protein 8.8 H Albumin 5.0 Impressions: Hand X-Ray 12/19/19 17:54 IMPRESSION: DORSAL SOFT TISSUE SWELLING. CHRONIC DEGENERATIVE CHANGES. NO ACUTE BONY FINDINGS. Assessment & Plan - Diagnosis (1) Cellulitis of left hand Is this a current diagnosis for this admission?: Yes - Plan Summary Plan Summary: This is a 69-year-old female with multiple medical issues including acute kidney injury, diabetes, hypertension, chronic pain syndrome. I have recommended hospitalist evaluation and admission, but Dr. Jose Luis Palma has refused. Surgery will admit the patient. Plan for surgery tomorrow. The hospitalist will be consulted for management of the patient's chronic pain syndrome, acute kidney injury, diabetes, hypertension, and multiple medications. I have offered to perform incision and drainage at the bedside, however the patient has refused. We will plan for LMAC anesthesia for drainage and debridement of the left hand tomorrow. Risks/benefits discussed, informed consent obtained, and all questions answered.
[2019-12-20] MEDS: INSULIN LISPRO 100 UNIT/ML 3 ML VIAL SUBCUT SCH ×3 (07:48→16:39)
[2019-12-20] MEDS ORDERED: MORPHINE SULFATE 10 MG/ML INJ IV ONE (09:00)
[2019-12-20] MEDS: GABAPENTIN 300 MG CAPSULE PO SCH ×4 (09:19→21:37)
[2019-12-20] MEDS ORDERED: PROPOFOL INJ 200 MG/20 ML VIAL IV ONE (12:01)
[2019-12-20] MEDS ORDERED: FENTANYL CITRATE INJ/PF 100 MCG/2 ML AMPUL ONE (12:01)
[2019-12-20] MEDS ORDERED: MIDAZOLAM 2 MG/2 ML INJ ONE (12:01)
[2019-12-20] MEDS ORDERED: MORPHINE SULFATE 10 MG/ML INJ IV PRN ×2 (12:18→15:37)
[2019-12-20] MEDS ORDERED: MEPERIDINE HCL/PF INJ 25 MG/1 ML DISP.SYRIN IV PRN (12:18)
[2019-12-20] MEDS ORDERED: PROMETHAZINE HCL INJ 25 MG/1 ML VIAL IV PRN ×2 (12:18)
[2019-12-20] MEDS ORDERED: ONDANSETRON HCL INJ/PF 4 MG/2 ML SDV IV PRN (12:18)
[2019-12-20] MEDS ORDERED: OXYCODONE-ACETAMINOPHEN 5-325 MG TABLET PO PRN ×2 (12:18)
[2019-12-20] MEDS ORDERED: FENTANYL CITRATE INJ/PF 100 MCG/2 ML AMPUL IV PRN ×3 (12:18)
[2019-12-20] MEDS ORDERED: DIPHENHYDRAMINE HCL 50 MG/ML VIAL IV PRN (12:18)
--- NOTE | 2019-12-20 12:51 | Operative Report ---
Nonrecallable Operative Report DATE OF SURGERY: 12/20/19 PREOPERATIVE DIAGNOSIS: left hand abscess POSTOPERATIVE DIAGNOSIS: Left hand abscess OPERATION: Excision of left hand abscess SURGEON: ZEV PAULINO ANESTHESIA: IV-Regional TISSUE REMOVED OR ALTERED: Skin over the first webspace left hand COMPLICATIONS: None ESTIMATED BLOOD LOSS: 10 cc INTRAOPERATIVE FINDINGS: Encapsulated abscess left hand PROCEDURE: Procedure; Patient was brought to the operating room after being given a IV regional anesthetic. The left arm was prepped and draped in usual sterile fashion. The patient had approximately a 3 cm diameter raised abscess over the first webspace in her left hand on top of the extensor tendon. After appropriate timeout site verification the procedure commenced. A curvilinear incision was made circumferentially around the abscess itself was raised and multiloculated it drained pus as we began our dissection. It was not a single abscess but a multiloculated raised abscess. It was a completely excised with the Bovie cautery. Dissection was carried down through subcutaneou s tissue to the loose areolar tissue over the extensor tendon on the left hand. A 4 cm long by 2 cm wide section of skin encompassing the abscess was removed. The wound was then irrigated and hemostasis obtained with Bovie cautery. A sterile dressing was applied at the termination of the procedure procedure. Sponge needle counts were correct x2. Patient was then transferred recovery in stable condition
--- NOTE | 2019-12-20 13:35 | PDOC PROGRESS REPORT ---
Subjective Progress Note for:: 12/20/19 Reason For Visit: HAND CELLULITIS Physical Exam Vital Signs: Temp Pulse Resp BP Pulse Ox 98.1 F 64 20 131/70 H 100 12/20/19 12:43 12/20/19 12:58 12/20/19 12:58 12/20/19 12:58 12/20/19 12:58 Intake & Output 12/19/19 12/20/19 12/21/19 06:59 06:59 06:59 Intake Total 1100 850 Output Total 55 Balance 1100 795 Weight 64.4 kg General appearance: PRESENT: no acute distress Head exam: PRESENT: atraumatic Respiratory exam: PRESENT: clear to auscultation marisol, unlabored Cardiovascular exam: PRESENT: RRR, +S1, +S2 GI/Abdominal exam: PRESENT: normal bowel sounds, soft. ABSENT: tenderness Rectal exam: PRESENT: deferred Extremities exam: PRESENT: other - L hand swelling and erythema, Diminished ROM Neurological exam: PRESENT: alert, awake, other - Resting tremors and pill rolling of hands Psychiatric exam: PRESENT: anxious Skin exam: PRESENT: erythema Results Laboratory Results: 12/19/19 18:06 12/20/19 04:13 12/19/19 12/19/19 12/20/19 18:06 18:06 04:13 WBC 14.6 H RBC 4.40 Hgb 13.5 Hct 40.0 MCV 91 MCH 30.7 MCHC 33.8 RDW 14.5 H Plt Count 336 Seg Neutrophils % 77.7 Sodium 133.4 L 132.4 L Potassium 4.2 4.7 Chloride 97 L 103 Carbon Dioxide 23 20 L Anion Gap 13 9 BUN 25 H 24 H Creatinine 1.48 H 1.20 Est GFR ( Amer) 42 L 54 L Glucose 165 H 124 H Calcium 10.0 8.9 Total Bilirubin 0.9 AST 24 Alkaline Phosphatase 71 Total Protein 8.8 H Albumin 5.0 Impressions: Hand X-Ray 12/19/19 17:54 IMPRESSION: DORSAL SOFT TISSUE SWELLING. CHRONIC DEGENERATIVE CHANGES. NO ACUTE BONY FINDINGS. Assessment and Plan - Diagnosis (1) SIRS (systemic inflammatory response syndrome) Is this a current diagnosis for this admission?: Yes Plan: Had elevated WBC, with mild MICHELLE, tachycardia and L hand infection (2) Cellulitis of left hand Is this a current diagnosis for this admission?: Yes Plan: Patient is s/p I and D. Due to her advanced age, with cultures still pending and leukocytosis patient should be monitored in house for another day, will reevaluate in am (3) Hypertension Is this a current diagnosis for this admission?: Yes Plan: Continue outpatient regiment with hydralazine as needed - Time Time Spent with patient: 15-24 minutes Anticipated discharge: Home Within: within 24 hours
[2019-12-20] MEDS ORDERED: SIMVASTATIN 40 MG TABLET PO SCH (18:00)
[2019-12-20] MEDS: HYDROCODONE/ACETAMINOPHEN 10-325 MG TABLET PO PRN (21:37)
[2019-12-20] MEDS ORDERED: DULOXETINE HCL 30 MG CAPSULE.DR PO SCH (22:00)
[2019-12-20] MEDS ORDERED: TRAZODONE HCL 50 MG TABLET PO SCH (22:00)
[2019-12-20] MEDS ORDERED: LOSARTAN POTASSIUM 50 MG TABLET PO SCH (22:00)
[2019-12-21 05:33] LABS: ABSOLUTE EOSINOPHILS # (AUTO) 0.1 10^3/uL (0.0-0.6); ABSOLUTE LYMPHOCYTES (AUTO) 2.3 10^3/uL (0.5-4.7); ABSOLUTE MONOCYTES (AUTO) 0.7 10^3/uL (0.1-1.4); ABSOLUTE NEUT (AUTO) 4.2 10^3/uL (1.7-8.2); BASOPHILS % (AUTO) 0.1 % (0-2); EOSINOPHILS % (AUTO) 1.2 % (0-6); HEMATOCRIT 33.2 % (36.0-47.0); LYMPHOCYTES % (AUTO) 32.2 % (13-45); MEAN CORPUSCULAR VOLUME 91 fl (80-97); MONOCYTES % (AUTO) 9.5 % (3-13); PLATELET COUNT 265 10^3/uL (150-450); RED BLOOD COUNT 3.65 10^6/uL (3.72-5.28); TOTAL CELLS COUNTED % (AUTO) 100 %; WHITE BLOOD COUNT 7.3 10^3/uL (4.0-10.5)
[2019-12-21 05:48] LABS: ANION GAP 8 (5-19); BLOOD UREA NITROGEN 20 mg/dL (7-20); CARBON DIOXIDE 24 mmol/L (22-30); CHLORIDE 99 mmol/L (98-107); GLUCOSE 133 mg/dL (75-110); HEMOGLOBIN 11.3 g/dL (12.0-15.5); POTASSIUM 4.6 mmol/L (3.6-5.0)
[2019-12-21] MEDS: CLINDAMYCIN 900 MG/D5W RTU 900 MG/50 ML RTUPB IV SCH (05:53)
[2019-12-21] MEDS: HYDROCODONE/ACETAMINOPHEN 10-325 MG TABLET PO PRN (05:53)
[2019-12-21] MEDS: INSULIN LISPRO 100 UNIT/ML 3 ML VIAL SUBCUT SCH (07:28)
--- NOTE | 2019-12-21 08:06 | PDOC DISCHARGE SUMMARY ---
General - Admit/Disc Date/PCP Admission Date/Primary Care Provider: 12/19/19 23:31 TERESA VELEZ MD Discharge Date: 12/21/19 - Discharge Diagnosis Final Diagnosis: left hand abscess - Assessment Summary: JOAQUIN MELISSA is a 69 year old diabetic female with a one-week history of erythema, induration, and pain of the hand. Patient reports a small amount of purulent drainage. She denies edema. The patient reports "poking it with needles at home". The redness and pain to continue to worsen, despite oral antibiotics. The patient is a diabetic, who does not check her sugars or take her medications. She has chronic pain syndrome and takes narcotics at home. 2 days ago she was prescribed Bactrim, however this has not helped. Patient presents to the emergency department today for evaluation of her worsening hand cellulitis. She denies chest pain, shortness of breath, fevers, chills, nausea, vomiting, melena, hematochezia, dizziness, orthostasis, headache, seizures. Nothing makes it better or worse. Her pain does not radiate Patient was taken to the operating room the following day after admission where she underwent an incision and drainage of the left hand abscess. She tolerated the procedure well postoperatively had a routine benign postop course. The following day the wound was examined and looked clean the cellulitis has been resolving the patient was given instruction on wet-to-dry dressings to the left hand to be done twice daily at home. She will be discharged home now on p.o. Bactrim DS that she had been previously prescribed by outpatient urgent care. She has those antibiotics at home. She will follow-up in surgical clinic in 7 to 10 days. - Additional Information Resuscitation Status: Full Code Discharge Activity: Activity As Tolerated Referrals: ZEV ZAMORA DO [ACTIVE STAFF] - Follow up as needed Prescriptions: Hydrocodone/Acetaminophen [[place] 10-325 mg Tablet] 1 tab PO Q6HP PRN #15 tablet PRN Reason: Home Medications: Duloxetine HCl [Cymbalta] 60 mg PO QHS 09/27/17 Gabapentin [Neurontin] 600 mg PO DAILY 09/27/17 Losartan Potassium [Cozaar 50 mg Tablet] 50 mg PO QHS 09/27/17 Methocarbamol [Robaxin 500 mg Tablet] 500 mg PO DAILYP PRN 09/27/17 Oxybutynin Chloride [Ditropan Xl] 10 mg PO QHS 09/27/17 Simvastatin [Zocor 40 mg Tablet] 40 mg PO QPM 09/27/17 Trazodone HCl [Desyrel] 150 mg PO QHS 09/27/17 Bisacodyl [Women's Gentle Laxative] 3 tab PO PRN PRN 12/20/19 Folic Acid [Folvite 1 mg Tablet] 1 tab PO QHS 12/20/19 Gabapentin 1,200 mg PO QHS 12/20/19 Golimumab [Simponi Aria] 1 vial IV-INFUSE ASDIR 12/20/19 Hydrocodone/Acetaminophen [[place] 10-325 mg Tablet] 1 tab PO TIDP PRN 12/20/19 Omeprazole 40 mg PO DAILY 12/20/19 Sulfamethoxazole/Trimethoprim [Bactrim Ds Tablet] 1 each PO Q12 12/20/19 Zaleplon 5mg 5 mg PO QHS 12/20/19 Hydrocodone/Acetaminophen [[place] 10-325 mg Tablet] 1 tab PO Q6HP PRN #15 tablet 12/21/19 History of Present Illiness History of Present Illness: JOAQUIN MELISSA is a 69 year old female Physical Exam Vital Signs: Temp Pulse Resp BP Pulse Ox 98.2 F 62 17 125/57 L 95 12/21/19 00:27 12/21/19 00:27 12/21/19 00:27 12/21/19 00:27 12/21/19 00:27 Intake & Output 12/20/19 12/21/19 12/22/19 06:59 06:59 06:59 Intake Total 1100 1370 Output Total 355 Balance 1100 1015 Weight 64.4 kg 55.3 kg Results Laboratory Results: WBC 7.3 10^3/uL (4.0-10.5) 12/21/19 04:55 RBC 3.65 10^6/uL (3.72-5.28) L 12/21/19 04:55 Hgb 11.3 g/dL (12.0-15.5) L D 12/21/19 04:55 Hct 33.2 % (36.0-47.0) L 12/21/19 04:55 MCV 91 fl (80-97) 12/21/19 04:55 MCH 31.0 pg (27.0-33.4) 12/21/19 04:55 MCHC 34.0 g/dL (32.0-36.0) 12/21/19 04:55 RDW 14.0 % (11.5-14.0) 12/21/19 04:55 Plt Count 265 10^3/uL (150-450) 12/21/19 04:55 Lymph % (Auto) 32.2 % (13-45) 12/21/19 04:55 Ross % (Auto) 9.5 % (3-13) 12/21/19 04:55 Eos % (Auto) 1.2 % (0-6) 12/21/19 04:55 Baso % (Auto) 0.1 % (0-2) 12/21/19 04:55 Absolute Neuts (auto) 4.2 10^3/uL (1.7-8.2) 12/21/19 04:55 Absolute Lymphs (auto) 2.3 10^3/uL (0.5-4.7) 12/21/19 04:55 Absolute Monos (auto) 0.7 10^3/uL (0.1-1.4) 12/21/19 04:55 Absolute Eos (auto) 0.1 10^3/uL (0.0-0.6) 12/21/19 04:55 Absolute Basos (auto) 0.0 10^3/uL (0.0-0.2) 12/21/19 04:55 Seg Neutrophils % 57.0 % (42-78) 12/21/19 04:55 Sodium 131.2 mmol/L (137-145) L 12/21/19 04:55 Potassium 4.6 mmol/L (3.6-5.0) 12/21/19 04:55 Chloride 99 mmol/L (98-107) 12/21/19 04:55 Carbon Dioxide 24 mmol/L (22-30) 12/21/19 04:55 Anion Gap 8 (5-19) 12/21/19 04:55 BUN 20 mg/dL (7-20) 12/21/19 04:55 Creatinine 0.89 mg/dL (0.52-1.25) 12/21/19 04:55 Est GFR ( Amer) > 60 (>60) 12/21/19 04:55 Est GFR (MDRD) Non-Af > 60 (>60) 12/21/19 04:55 Glucose 133 mg/dL (75-110) H 12/21/19 04:55 POC Glucose 128 mg/dL (70-110) H 12/21/19 06:14 Calcium 9.0 mg/dL (8.4-10.2) 12/21/19 04:55 Total Bilirubin 0.9 mg/dL (0.2-1.3) 12/19/19 18:06 Direct Bilirubin 0.1 mg/dL (0.0-0.4) 12/19/19 18:06 Neonat Total Bilirubin Not Reportable 12/19/19 18:06 Neonat Direct Bilirubin Not Reportable 12/19/19 18:06 Neonat Indirect Bili Not Reportable 12/19/19 18:06 AST 24 U/L (14-36) 12/19/19 18:06 ALT 19 U/L (<35) 12/19/19 18:06 Alkaline Phosphatase 71 U/L (38-126) 12/19/19 18:06 Total Protein 8.8 g/dL (6.3-8.2) H 12/19/19 18:06 Albumin 5.0 g/dL (3.5-5.0) 12/19/19 18:06 Urine Opiates Screen UNCONFIRMED POSITIVE 12/19/19 23:27 Urine Methadone Screen NEGATIVE 12/19/19 23:27 Ur Barbiturates Screen NEGATIVE 12/19/19 23:27 Ur Phencyclidine Scrn NEGATIVE 12/19/19 23:27 Ur Amphetamines Screen NEGATIVE 12/19/19 23:27 U Benzodiazepines Scrn NEGATIVE 12/19/19 23:27 Urine Cocaine Screen NEGATIVE 12/19/19 23:27 U Marijuana (THC) Screen NEGATIVE 12/19/19 23:27 Impressions: Hand X-Ray 12/19/19 17:54 IMPRESSION: DORSAL SOFT TISSUE SWELLING. CHRONIC DEGENERATIVE CHANGES. NO ACUTE BONY FINDINGS.
[2019-12-21 08:31] VITALS: BP 147/84
== END 2019-12-21 09:32 | disposition home or self-care (01) ==
LOC: ER 17:43 → EH 23:31 → 4N 12-20 00:52
PROVIDERS: ATTEND Surgery
DX: L02.512 Cutaneous abscess of left hand (principal); I96 Gangrene, not elsewhere classified; E11.9 Type 2 diabetes mellitus without complications; Z91.14 Patient's other noncompliance with medication regimen; G89.4 Chronic pain syndrome; M19.90 Unspecified osteoarthritis, unspecified site; I10 Essential (primary) hypertension; E78.5 Hyperlipidemia, unspecified; N17.9 Acute kidney failure, unspecified; R65.10 Systemic inflammatory response syndrome (SIRS) of non-infectious origin without acute organ dysfunction; G25.2 Other specified forms of tremor; K59.00 Constipation, unspecified; F32.9 Major depressive disorder, single episode, unspecified; Z79.891 Long term (current) use of opiate analgesic; Z90.49 Acquired absence of other specified parts of digestive tract
CPT/HCPCS: 11042; 99285; 96375; 96365; 96367; 36415 ×3; 87040; 87070; 87205; 82962 ×2; 85025 ×2; 87075; 87077; 80048 ×2; 80053; 87186; 80307; 88304 ×2; 73130; 99140; 01810; J2795; J2250; A9270 ×7; J3010; J3490 ×3; J2270 ×2; J2405; J7030; J2704; J3370; J0692; G0378